=== PATIENT | female | born 1960 | race Caucasian/White ===

== ENCOUNTER 2025-02-27 14:48 | Inpatient (IN) | payer MEDICAID, OTHER ==
[~2025-02-27] VITALS: Ht 154.9 cm; Wt 66.0 kg
[2025-02-27 15:00] VITALS: PULSE 106; RESP 14; O2SAT 96
--- NOTE | 2025-02-27 15:21 | ED.PDOC ---
History of Present Illness HPI Comments 64F BIBA w/ prior MHx of DM(has not been taking her Insulin recently)and w/ the c/c of falls. EMS report on the pt having had multiple falls in the last 2 days w/ the pt injuring her left rib yesterday and has pain w/ palpation. Pt fell again today w/ no new pain and prompted the pt's daughter to call 911 and from the pt having had weakness. When EMS arrived on scene the pt had a BS of "high" and a BP of 200/100. Pt was given a 20 guage to the left AC, w/ 4 zofran and 300mg of fluids. Pt states on having diffuse ABD pain at the moment. Denies any symptoms at this time. Patient denies any CP, SOB, dizziness, numbness, tingling, fever, chills, or recent fall. Chief Complaint: General Weakness Time Seen by MD: 15:15 Primary Care Provider: NONE Reviewed Notes: Nurses Notes, Collection Specialist Notes, Medications, Allergies Allergies: Coded Allergies: NO KNOWN ALLERGIES (Unverified , 04/05/13) Information Source: Patient, Emergency Med Personnel Mode of Arrival: EMS Severity: Moderate Timing: Hours Duration: Since onset, Hours Prehospital treatment: None Past Medical History PAST MEDICAL HISTORY: DM (has not been taking her Insulin recently), Denies Surgical History: Appendectomy, Hysterectomy DAUB COLOR MIXER History: No Pertinent DAUB COLOR MIXER History Family History Family History: Reviewed,noncontributory to illness, Unknown Social History Smoker: Non-Smoker Alcohol: Occasionally Drugs: Denies Drug Use Lives In: Home Constitutional: reports: weakness; denies: chills, diaphoresis, fatigue, fever, malaise, sweats, others EENTM: denies: blurred vision, double vision, ear bleeding, ear discharge, ear drainage, ear pain, ear ringing, eye pain, eye redness, hearing loss, mouth pain, mouth swelling, nasal discharge, nose bleeding, nose congestion, nose pain, photophobia, tearing, throat pain, throat swelling, voice changes, others Respiratory: denies: cough, hemoptysis, orthopnea, SOB at rest, shortness of breath, SOB with excertion, stridor, wheezing, others Cardiovascular: reports: chest pain (left chest wall pain s/p fall); denies: dizzy spells, diaphoresis, Dyspnea on exertion, edema, irregular heart beat, left arm pain, lightheadedness, palpitations, PND, syncope, others Gastrointestinal: reports: abdominal pain; denies: abdomen distended, blood streaked bowels, constipated, diarrhea, dysphagia, difficulty swallowing, hematemesis, melena, nausea, poor appetite, poor fluid intake, rectal bleeding, rectal pain, vomiting, others Genitourinary: denies: abnormal vagina bleeding, burning, dyspareunia, dysuria, flank pain, frequency, hematuria, incontinence, pain, , vagina discharge, urgency, others Neurological: denies: dizziness, fainting, headache, left sided numbness, left sided weakness, numbness, paresthesia, pre-existing deficit, right sided numbness, right sided weakness, seizure, speech problems, tingling, tremors, weakness, others Musculoskeletal: denies: back pain, gout, joint pain, joint swelling, muscle pa in, muscle stiffness, neck pain, others Integumetry: denies: bruises, change in color, change in hair/nails, dryness, laceration, lesions, lumps, rash, wounds, others Allergic/Immunocompromised: denies: Difficulty Healing, Frequent Infections, Hives, Itching, others Hematologic/Lymphatic: denies: anemia, blood clots, easy bleeding, easy bruising, swollen glands, others Endocrine: denies: excessive hunger, excessive sweating, excessive thirst, excessive urination, flushing, intolerance to cold, intolerance to heat, unexplained weight gain, unexplained weight loss, others Psychiatric: denies: anxiety, bipolar disorder, depression, hopeless, panic disorder, schizophrenia, sleepless, suicidal, others All Other Systems: Reviewed and Negative Physical Exam Exam Comments diffuse ABD Tenderness General Appearance: No Apparent Distress, Normal HEENT: Normal ENT Inspection, Pharynx Normal, TMs Normal Neck: Full Range of Motion, Non-Tender, Normal, Normal Inspection Respiratory: Chest Non-Tender, Lungs Clear, No Accessory Muscle Use, No Respiratory Distress, Normal Breath Sounds Cardiovascular: No Edema, No JVD, No Murmur, No Gallop, Normal Peripheral Pulses, Regular Rate/Rhythm Breast Exam: Deferred Gastrointestinal: Diffuse, No Organomegaly, No Pulsatile Mass, Normal Bowel Sounds, Soft, Tenderness Genitalia: Deferred Pelvic: Deferred Rectal: Deferred Extremities: No calf tenderness, Normal capillary refill, Normal inspection, Normal range of motion, Non-tender, No pedal edema Musculoskeletal : Apperance: Normal Neurologic: Alert, health underwriter II-XII nml as Tested, No Motor Deficits, Normal Affect, Normal Mood, No Sensory Deficits Cerebellar Function: Normal Reflexes: Normal Skin: Dry, Normal Color, Warm Lymphatic: No Adenopathy Was a procedure done? Was a procedure done?: No Differential Dx Considerations may include: Sepsis, DKA, UTI, CVA X-Ray, Labs, Meds, VS Vital Signs Date Time Temp Pulse Resp B/P (MAP) Pulse Ox O2 Delivery O2 Flow Rate FiO2 02/27/25 18:10 188/99 02/27/25 17:00 106 17 192/96 (128) 97 02/27/25 15:00 106 14 96 Room Air* 0 21 02/27/25 15:00 98.3 106 14 178/98 (124) 96 98.3 02/27/25 14:51 98.3 104 28 205/119 96 98.3 Lab Test 02/27/25 16:50 02/27/25 15:16 Range/Units Urine Color Colorless Yellow Urine Clarity Clear Clear Urine pH 5.0 5.0-9.0 Urine Specific [place] 1.027 1.001-1.035 Urine Protein Trace H Negative Urine Ketones 2+ H Negative Urine Blood Trace H Negative /uL Urine Nitrite Negative Negative Urine Bilirubin Negative Negative Urine Urobilinogen Normal Negative mg/dL Urine Leukocyte Esterase 2+ Negative /uL Urine RBC 1 0 - 4 /hpf Urine Microscopic WBC 8 H 0-5 /HPF Urine Squamous Epithelial Cells Few <5 /hpf Urine Bacteria Few H None Seen /hpf Urine Glucose 4+ H Normal mg/dL White Blood Count 10.4 4.4-10.8 10^3/uL Red Blood Count 5.05 4.0-5.20 10^6/uL Hemoglobin 14.8 12.2-16.2 g/dL Hematocrit 44.3 36.0-46.0 % Mean Corpuscular Volume 87.8 80.0-100.0 fL Mean Corpuscular Hemoglobin 29.2 28.0-32.0 pg Mean Corpuscular Hemoglobin Concent 33.3 32.0-36.0 g/dL Red Cell Distribution Width 13.5 11.8-14.3 % Platelet Count 286 140-450 10^3/uL Mean Platelet Volume 8.8 6.9-10.8 fL Neutrophils (%) (Auto) 85.4 H 37.0-80.0 % Lymphocytes (%) (Auto) 6.0 L 10.0-50.0 % Monocytes (%) (Auto) 8.2 0.0-12.0 % Eosinophils (%) (Auto) 0.0 0.0-7.0 % Basophils (%) (Auto) 0.4 0.0-2.0 % Neutrophils # (Auto) 8.9 H 1.6-8.6 10 ^3/uL Lymphocytes # (Auto) 0.6 0.4-5.4 10 ^3/uL Monocytes # (Auto) 0.9 0-1.3 10 ^3/uL Eosinophils # (Auto) 0 0-0.8 10 ^3/uL Basophils # (Auto) 0 0-0.2 10 ^3/uL Nucleated Red Blood Cells 0.1 % Sodium Level 136 136-145 mmol/L Potassium Level 3.7 3.5-5.1 mmol/L Chloride Level 98 98-107 mmol/L Carbon Dioxide Level 23 20-31 mmol/L Anion Gap 15 5-15 Blood Urea Nitrogen 24 H 9-23 mg/dL Creatinine 1.01 0.550-1.02 mg/dL Glomerular Filtration Rate Calc 61 >90 mL/min BUN/Creatinine Ratio 23.8 H 10.0-20.0 Serum Glucose 554 *H 74-106 mg/dL Calcium Level 9.7 8.7-10.4 mg/dL Total Bilirubin 1.2 H 0.2-1.0 mg/dL Aspartate Amino Transferase (AST) 17 13-40 U/L Alanine Aminotransferase (ALT) 19 7-40 U/L Alkaline Phosphatase 109 46-116 U/L Total Protein 8.4 H 5.7-8.2 g/dL Albumin 4.5 3.2-4.8 g/dL Lipase 61 H 12-53 U/L Current Medications Medications (Trade) Dose Ordered Sig/Yareli Route Start Time Stop Time Status Last Admin Sodium Chloride 1,000 ml @ 1,000 mls/hr Q1H ONCE IV 02/27/25 15:15 02/27/25 16:14 DC 02/27/25 15:40 Ketorolac Tromethamine (Toradol Injection) 30 mg ONCE ONCE IV 02/27/25 16:15 02/27/25 16:21 DC 02/27/25 16:40 Hydralazine HCl (Apresoline Injection) 10 mg ONCE ONCE IV 02/27/25 17:45 02/27/25 17:46 DC 02/27/25 18:10 X-Ray, Labs, Meds, VS Comment Patient will be admitted for urinary tract infection and metabolic encephalopathy Recommend education due to poor compliance with diabetes and insulin use Patient hemodynamically stable Pending lactic acid Time of 1ST Reevaluation: 15:45 Reevaluation 1ST: Unchanged Patient Education/Counseling: Diagnosis, Treatment, Prognosis, Need For Follow Up Family Education/Counseling: No Family Present SEPSIS Sepsis Screen Date sepsis recognized/suspect: Feb 27, 2025 Time Sepsis recognized/suspect: 1450 Recent Procedure: No On Antibiotic Therapy: No Respiratory Rate >20: Yes Heart Rate >90: Yes Temp<36 C (96.8 F) or >38.3 C: No SBP <90 or MAP <65 mmHG: No New Acute Mental Status Change: No Is the patient on CPAP, BIPAP,: No Physician Orders Ct Ab Pel Wo Con-No Oral Or Iv (02/27/25 15:07) Head Without Contrast (02/27/25 15:14) Ceftriaxone 1gm/50ml (Rocephin) (02/27/25 18:30) Lipase (02/27/25 18:26) Vital Signs Date Time Temp Pulse Resp B/P (MAP) Pulse Ox O2 Delivery O2 Flow Rate FiO2 02/27/25 18:10 188/99 02/27/25 17:00 106 17 192/96 (128) 97 02/27/25 15:00 106 14 96 Room Air* 0 21 02/27/25 15:00 98.3 106 14 178/98 (124) 96 98.3 02/27/25 14:51 98.3 104 28 205/119 96 98.3 Laboratory Tests Test 02/27/25 15:16 White Blood Count 10.4 10^3/uL (4.4-10.8) Medications Medications Dose Ordered Sig/Yareli Route Start Time Stop Time Status Last Admin Dose Admin Hydralazine HCl 10 mg ONCE ONCE IV 02/27/25 17:45 02/27/25 17:46 DC 02/27/25 18:10 Ketorolac Tromethamine 30 mg ONCE ONCE IV 02/27/25 16:15 02/27/25 16:21 DC 02/27/25 16:40 Sodium Chloride 1,000 ml @ 1,000 mls/hr Q1H ONCE IV 02/27/25 15:15 02/27/25 16:14 DC 02/27/25 15:40 Departure 1 Departure Time of Disposition: 18:28 Impression: Primary Impression: UTI (urinary tract infection) Qualified Codes: N30.01 - Acute cystitis with hematuria Additional Impression: Hyperglycemia Disposition: ADMITTED INPATIENT Condition: Stable Discharged With: Self Critical Care Note Critical Care Time?: No Stability Stability form required: No I personally scribed for ILDEFONSO CONTRERAS ([email or web address]) on 02/27/25 at 15:21. Electronically submitted by Stefano Montoya ([email or web address]). ILDEFONSO CONTRERAS Feb 27, 2025 15:21
[2025-02-27 15:30] LABS: Hematocrit 44.3 % (36.0-46.0); Hemoglobin 14.8 g/dL (12.2-16.2); Mean Corpuscular Hemoglobin 29.2 pg (28.0-32.0); Mean Corpuscular Volume 87.8 fL (80.0-100.0); Nucleated Red Blood Cells % 0.1 %
[2025-02-27] MEDS: SODIUM CHLORIDE 0.9% 1,000 ML IV ONE (15:40)
[2025-02-27] MEDS: InsuLIN REG 1unit/0.01ml Soln (100units/ml) IV ONE (15:42)
[2025-02-27 15:44] LABS: Alanine Aminotransferase 19 U/L (7-40); Albumin 4.5 g/dL (3.2-4.8); Alkaline Phosphatase 109 U/L (46-116); Anion Gap 15 (5-15); BUN/Creatinine Ratio 23.8 (10.0-20.0); Calcium 9.7 mg/dL (8.7-10.4); Carbon Dioxide 23 mmol/L (20-31); Potassium 3.7 mmol/L (3.5-5.1)
[2025-02-27 15:47] LABS: Bilirubin, Total 1.2 mg/dL (0.2-1.0); Blood Urea Nitrogen 24 mg/dL (9-23); Chloride 98 mmol/L (98-107); Lipase 61 U/L (12-53); Sodium 136 mmol/L (136-145); Total Protein 8.4 g/dL (5.7-8.2)
[2025-02-27 15:48] LABS: Glucose 554 mg/dL (74-106)
[2025-02-27] MEDS: KETOROLAC TROMETH 30 MG/ML 1ML VIAL IV ONE (16:40)
--- NOTE | 2025-02-27 17:04 | DVH ---
EXAM: CT HEAD WITHOUT CONTRAST INDICATION: fall COMPARISON: None TECHNIQUE: CT of the head without intravenous contrast. Radiation Dose Information: CT Dose: CTDI volume is 53.67 mGy. Dose-length product is 1057.69 mGy*cm The dose indicators for CT are the volume Computed Tomography (CT) Dose Index (CTDIvol) and the Dose Length Product (DLP), and are measured in units of mGy and mGy-cm, respectively. These indicators are not patient dose, but values generated from the CT scanner acquisition factors. The report includes radiation exposure data for exposures received during this examination. FINDINGS: Scattered hypoattenuation in the periventricular and subcortical white matter, suggestive of chronic microvascular disease. The ventricles and sulci are mildly enlarged, compatible with generalized parenchymal volume loss. There is no mass- effect, hemorrhage, midline shift, or abnormal extra-axial fluid collection visible. No calvarial fracture. Essentially clear visualized paranasal sinuses. Mastoid air cells are clear. IMPRESSION: No acute intracranial hemorrhage or mass effect.
--- NOTE | 2025-02-27 17:13 | DVH ---
INDICATION: abd pain TECHNIQUE: CT axial images of the abdomen and pelvis are obtained without contrast. Coronal and sagittal reformats were obtained. Radiation Dose Information: CTDI volume is 5.91 mGy. Dose-length product is 319.52 mGy*cm COMPARISON: None FINDINGS: There is limited interpretation of the abdomen and pelvis without administration of intravenous contrast. Lung bases demonstrate 3 mm right middle lobe pulmonary nodule. 2 mm right middle lobe pulmonary nodule. 6 mm left upper lobe lingular segment nodule. 7 mm left upper lobe lingular segment nodule. Left lower lobe solid nodule measuring 6 mm. Coronary artery calcification disease. Adrenal glands, spleen, pancreas unremarkable in shape. Liver unremarkable shape. Hydropic/Distended gallbladder. Gallstone near the gallbladder neck. Kidneys demonstrate no hydronephrosis, nephrolithiasis. Stomach is partially distended. Small bowel loops are normal in caliber. Colonic diverticular disease. Moderate volume stool in the colon. No secondary signs for appendicitis. Abdominal aortic atherosclerotic disease. Bladder markedly distended. No free pelvic fluid. No inguinal lymphadenopathy. [id number] bilateral sacroiliac degenerative joint disease. [id number] thoracolumbar degenerative disc disease. Chronic T11 compression deformity with 40% loss height. IMPRESSION: Limited evaluation without contrast. Hydropic/ distended gallbladder with gallstone near the gallbladder neck. Recommend abdominal ultrasound , HIDA scan to further evaluate for gallbladder obstruction, cholecystitis. Bilateral pulmonary nodules up to 7 mm. Recommend follow-up per Fleischner society criteria. Correlate with malignancy risk factors. Atherosclerotic, coronary artery calcification disease. Distended bladder. Other findings as described.
[2025-02-27 17:28] LABS: Urine Protein, UAD TRACE (Negative)
[2025-02-27] MEDS: hydrALAZINE HCL 20 MG/ML VL IV ONE (18:10)
[2025-02-27] MEDS: ONDANSETRON HCL 4 MG/2 ML VIAL IV ONE (18:46)
[2025-02-27] MEDS: MORPHINE SULFATE 4 MG/ML SYR/VIAL IV ONE (18:47)
[2025-02-27] MEDS ORDERED: DEXTROSE (50%) 50ML SYRG IV PRN (19:30)
[2025-02-27] MEDS: ACCU-CHEK COMFORT CURVE STRIP VI SCH (20:46)
[2025-02-27] MEDS: InsuLIN REG 1unit/0.01ml Soln (100units/ml) SC SCH (20:52)
[2025-02-27 21:20] VITALS: PULSE 104; RESP 16; O2SAT 97
[2025-02-28] VITALS (9 sets, daily range): BP systolic 91–140; BP diastolic 46–74; PULSE 72–102; RESP 15–18; TEMP 97.4–98.1; O2SAT 94–100
--- NOTE | 2025-02-28 04:00 | DVHHP2 ---
History of Present Illness Reason for Visit: Generalized weakness History of Present Illness 64-year-old female presents for evaluation of generalized weakness. Patient reports a two day history of generalized weakness with associated high blood sugars. Patient also reports having a fall due to dizziness. On arrival patient's blood pressure was in the 180s. The patient denies history of hypertension. Patient reports running out of her insulin and does not have a primary care provider. No chest pain or shortness for breath. Past Medical History Diabetes mellitus Past Surgical History Hysterectomy, appendectomy Family History Noncontributory Smoke: No ALCOHOL: none Drugs: None Lives: with Family Review of Systems Review of Systems Review of systems are currently negative otherwise addressed in HPI. Allergies: Coded Allergies: NO KNOWN ALLERGIES (Unverified , 04/05/13) Medications Current Medications Medications Dose Ordered Sig/Yareli Route Start Time Stop Time Status Last Admin Dose Admin Hydralazine HCl 10 mg Q6HP PRN IV 02/27/25 19:30 Ceftriaxone Sodium 50 ml @ 100 mls/hr DAILY@09 IV 02/28/25 09:00 Diagnostic Test (Pha) 1 strip IQ4HR 02/27/25 20:00 02/28/25 00:39 1 STRIP Insulin Human Regular IQ4HR SC 02/27/25 20:00 02/28/25 00:38 12 UNITS Dextrose 50 ml UD PRN IV 02/27/25 19:30 Ondansetron HCl 4 mg Q4HP PRN IV 02/27/25 19:30 Acetaminophen 650 mg Q6HP PRN PO 02/27/25 19:30 Exam Vital Signs Vital Signs Date Time Temp Pulse Resp B/P (MAP) Pulse Ox O2 Delivery O2 Flow Rate FiO2 02/28/25 00:51 98.1 102 16 128/72 (90) 98 98.1 02/28/25 00:36 Nasal Cannula* 2 28 Exam Gen: 64-year-old female in mild distress Skin: Warm, dry, normal color and texture, no rash. HEENT: Normocephalic atraumatic, mucous membranes moist and pink. Neck: Cervical and supraclavicular nodes normal without enlargement, trachea is midline, thyroid gland is normal without masses. Pulmonary: Clear to auscultation and percussion bilaterally. Cardiac: Regular rate and rhythm. No murmur Abdomen: Soft, nontender, nondistended, bowel sounds present all 4 quadrants, no guarding, no rigidity, no organomegaly. Extremities: No cyanosis, clubbing, no edema Neuro: Cranial nerves II through XII grossly intact, normal affect and speech, no focal motor deficits. Labs/Xrays ORDERING PHYSICIAN: ILDEFONSO CONTRERAS PROCEDURE(s): ABPL - CT AB PEL WO CON-NO ORAL OR IV REASON: abd pain ORDER NUMBER(s): [id number], ACCESSION NUMBER(s): [id number] INDICATION: abd pain TECHNIQUE: CT axial images of the abdomen and pelvis are obtained without contrast. Coronal and sagittal reformats were obtained. Radiation Dose Information: CTDI volume is 5.91 mGy. Dose-length product is 319.52 mGy*cm COMPARISON: None FINDINGS: There is limited interpretation of the abdomen and pelvis without administration of intravenous contrast. Lung bases demonstrate 3 mm right middle lobe pulmonary nodule. 2 mm right middle lobe pulmonary nodule. 6 mm left upper lobe lingular segment nodule. 7 mm left upper lobe lingular segment nodule. Left lower lobe solid nodule measuring 6 mm. Coronary artery calcification disease. Adrenal glands, spleen, pancreas unremarkable in shape. Liver unremarkable shape. Hydropic/Distended gallbladder. Gallstone near the gallbladder neck. Kidneys demonstrate no hydronephrosis, nephrolithiasis. Stomach is partially distended. Small bowel loops are normal in caliber. Colonic diverticular disease. Moderate volume stool in the colon. No secondary signs for appendicitis. Abdominal aortic atherosclerotic disease. Bladder markedly distended. No free pelvic fluid. No inguinal lymphadenopathy. [id number] bilateral sacroiliac degenerative joint disease. [id number]-at-[id number] thoracolumbar degenerative disc disease. Chronic T11 compression deformity with 40% loss height. IMPRESSION: Limited evaluation without contrast. Hydropic/ distended gallbladder with gallstone near the gallbladder neck. Recommend abdominal ultrasound , HIDA scan to further evaluate for gallbladder obstruction, cholecystitis. Bilateral pulmonary nodules up to 7 mm. Recommend follow-up per Fleischner society criteria. Correlate with malignancy risk factors. Atherosclerotic, coronary artery calcification disease. Distended bladder. Other findings as described. / SEX: 64 / F ADM STATUS: REG ER SERVICE [id number] ORDERING PHYSICIAN: IVY*,CHRISTOPHER E ASSISTANT MECHANIC PROCEDURE(s): HWOCT - HEAD WITHOUT CONTRAST REASON: fall ORDER NUMBER(s): [id number], ACCESSION NUMBER(s): [id number] EXAM: CT HEAD WITHOUT CONTRAST INDICATION: fall COMPARISON: None TECHNIQUE: CT of the head without intravenous contrast. Radiation Dose Information: CT Dose: CTDI volume is 53.67 mGy. Dose-length product is 1057.69 mGy*cm The dose indicators for CT are the volume Computed Tomography (CT) Dose Index (CTDIvol) and the Dose Length Product (DLP), and are measured in units of mGy and mGy-cm, respectively. These indicators are not patient dose, but values generated from the CT scanner acquisition factors. The report includes radiation exposure data for exposures received during this examination. FINDINGS: Scattered hypoattenuation in the periventricular and subcortical white matter, suggestive of chronic microvascular disease. The ventricles and sulci are mildly enlarged, compatible with generalized parenchymal volume loss. There is no mass- effect, hemorrhage, midline shift, or abnormal extra-axial fluid collection visible. No calvarial fracture. Essentially clear visualized paranasal sinuses. Mastoid air cells are clear. IMPRESSION: No acute intracranial hemorrhage or mass effect. Labs Test 02/28/25 00:21 02/27/25 19:21 02/27/25 16:50 02/27/25 15:16 Range/Units POC Glucose 301 H 70-106 mg/dl Lactic Acid Level 1.2 0.4-2.0 mmol/L Urine Color Colorless Yellow Urine Clarity Clear Clear Urine pH 5.0 5.0-9.0 Urine Specific [place] 1.027 1.001-1.035 Urine Protein Trace H Negative Urine Ketones 2+ H Negative Urine Blood Trace H Negative /uL Urine Nitrite Negative Negative Urine Bilirubin Negative Negative Urine Urobilinogen Normal Negative mg/dL Urine Leukocyte Esterase 2+ Negative /uL Urine RBC 1 0 - 4 /hpf Urine Microscopic WBC 8 H 0-5 /HPF Urine Squamous Epithelial Cells Few <5 /hpf Urine Bacteria Few H None Seen /hpf Urine Glucose 4+ H Normal mg/dL White Blood Count 10.4 4.4-10.8 10^3/uL Red Blood Count 5.05 4.0-5.20 10^6/uL Hemoglobin 14.8 12.2-16.2 g/dL Hematocrit 44.3 36.0-46.0 % Mean Corpuscular Volume 87.8 80.0-100.0 fL Mean Corpuscular Hemoglobin 29.2 28.0-32.0 pg Mean Corpuscular Hemoglobin Concent 33.3 32.0-36.0 g/dL Red Cell Distribution Width 13.5 11.8-14.3 % Platelet Count 286 140-450 10^3/uL Mean Platelet Volume 8.8 6.9-10.8 fL Neutrophils (%) (Auto) 85.4 H 37.0-80.0 % Lymphocytes (%) (Auto) 6.0 L 10.0-50.0 % Monocytes (%) (Auto) 8.2 0.0-12.0 % Eosinophils (%) (Auto) 0.0 0.0-7.0 % Basophils (%) (Auto) 0.4 0.0-2.0 % Neutrophils # (Auto) 8.9 H 1.6-8.6 10 ^3/uL Lymphocytes # (Auto) 0.6 0.4-5.4 10 ^3/uL Monocytes # (Auto) 0.9 0-1.3 10 ^3/uL Eosinophils # (Auto) 0 0-0.8 10 ^3/uL Basophils # (Auto) 0 0-0.2 10 ^3/uL Nucleated Red Blood Cells 0.1 % Sodium Level 136 136-145 mmol/L Potassium Level 3.7 3.5-5.1 mmol/L Chloride Level 98 98-107 mmol/L Carbon Dioxide Level 23 20-31 mmol/L Anion Gap 15 5-15 Blood Urea Nitrogen 24 H 9-23 mg/dL Creatinine 1.01 0.550-1.02 mg/dL Glomerular Filtration Rate Calc 61 >90 mL/min BUN/Creatinine Ratio 23.8 H 10.0-20.0 Serum Glucose 554 *H 74-106 mg/dL Hemoglobin A1c 12.7 H <5.7 % A1C Calcium Level 9.7 8.7-10.4 mg/dL Total Bilirubin 1.2 H 0.2-1.0 mg/dL Aspartate Amino Transferase (AST) 17 13-40 U/L Alanine Aminotransferase (ALT) 19 7-40 U/L Alkaline Phosphatase 109 46-116 U/L Total Protein 8.4 H 5.7-8.2 g/dL Albumin 4.5 3.2-4.8 g/dL Lipase 61 H 12-53 U/L SEPSIS Sepsis Screen Date sepsis recognized/suspect: Feb 27, 2025 Time Sepsis recognized/suspect: 2119 Recent Procedure: No On Antibiotic Therapy: No Respiratory Rate >20: No Heart Rate >90: Yes Temp<36 C (96.8 F) or >38.3 C: No SBP <90 or MAP <65 mmHG: No New Acute Mental Status Change: No Is the patient on CPAP, BIPAP,: No Vital Signs Date Time Temp Pulse Resp B/P (MAP) Pulse Ox O2 Delivery O2 Flow Rate FiO2 02/28/25 00:51 98.1 102 16 128/72 (90) 98 98.1 02/28/25 00:36 102 18 98 Nasal Cannula* 2 28 02/27/25 23:18 99 17 130/61 (84) 97 02/27/25 21:20 104 16 97 Nasal Cannula* 2 28 02/27/25 21:20 98.7 104 16 127/61 (83) 98 98.7 Laboratory Tests Test 02/27/25 19:21 Lactic Acid Level 1.2 mmol/L (0.4-2.0) Medications Medications Dose Ordered Sig/Yareli Route Start Time Stop Time Status Last Admin Dose Admin Ceftriaxone Sodium 50 ml @ 100 mls/hr ONCE ONCE IV 02/27/25 18:30 02/27/25 18:59 DC 02/27/25 18:45 100 MLS/HR Diagnostic Test (Pha) 1 strip IQ4HR 02/27/25 20:00 02/28/25 00:39 1 STRIP Hydralazine HCl 10 mg ONCE ONCE IV 02/27/25 17:45 02/27/25 17:46 DC 02/27/25 18:10 10 MG Insulin Human Regular IQ4HR SC 02/27/25 20:00 02/28/25 00:38 12 UNITS Ketorolac Tromethamine 30 mg ONCE ONCE IV 02/27/25 16:15 02/27/25 16:21 DC 02/27/25 16:40 30 MG Morphine Sulfate 4 mg ONCE ONCE IV 02/27/25 18:45 02/27/25 18:46 DC 02/27/25 18:47 4 MG Ondansetron HCl 4 mg ONCE ONCE IV 02/27/25 18:45 02/27/25 18:46 DC 02/27/25 18:46 4 MG Assessment/Plan Assessment/Plan Hypertensive urgency Urinary tract infection Uncontrolled diabetes mellitus Plan Admit the patient to Med surge to the hospitalist As needed antihypertensives Resume home medications Rocephin Continue treatment per orders. Plan discussed with: Patient My Orders Orders - MELBA LYNCH Procedure Category Date Status Time Hydralazine Injection PHA 02/27/25 In Process (Apresoline Inject 19:30 Basic Metabolic Panel LAB 02/28/25 Logged 04:00 Urine Bacterial SHERI 02/27/25 In Process Culture 19:25 Ceftriaxone 1gm/50ml PHA 02/28/25 In Process (Rocephin) 09:00 Insulin R (Human) PHA 02/27/25 In Process (Insulin R) 20:00 Dextrose 50% Syringe PHA 02/27/25 In Process 19:30 Admit ADMIT 02/27/25 Transmitted 19:25 Ondansetron Hcl PHA 02/27/25 In Process (Zofran) 19:30 Complete Blood Count LAB 02/28/25 Logged 04:00 Condition: Stable SIRIA 02/27/25 In Process 19:25 Acetaminophen Tablet PHA 02/27/25 In Process (Tylenol Tablet) 19:30 Bedrest With Bathroom SIRIA 02/27/25 In Process Privileg 19:25 Consistent DIET 02/28/25 Transmitted Carb(Ccho)Diabetes Breakfast Glucose Blood PHA 02/27/25 In Process (Accu-Chek Comfort 20:00 Date of Service: Feb 27, 2025 Billing Provider: MELBA LYNCH Common Visit Codes: [id number] INP/OBS CARE (HIGH) MELBA LYNCH Feb 28, 2025 04:00
[2025-02-28 08:32] LABS: Hematocrit 42.0 % (36.0-46.0); Hemoglobin 14.1 g/dL (12.2-16.2); Mean Corpuscular Hemoglobin 29.1 pg (28.0-32.0); Mean Corpuscular Volume 86.5 fL (80.0-100.0); Nucleated Red Blood Cells % 0.3 %
[2025-02-28 08:34] LABS: Chloride 106 mmol/L (98-107); Sodium 143 mmol/L (136-145)
[2025-02-28 08:35] LABS: Anion Gap 11 (5-15); Carbon Dioxide 26 mmol/L (20-31)
[2025-02-28] MEDS: ACETAMINOPHEN 325 MG TAB PO PRN (08:35)
[2025-02-28 08:36] LABS: Calcium 9.1 mg/dL (8.7-10.4)
[2025-02-28] MEDS: ONDANSETRON HCL 4 MG/2 ML VIAL IV PRN (08:36)
[2025-02-28 08:41] LABS: BUN/Creatinine Ratio 28.8 (10.0-20.0); Glucose 89 mg/dL (74-106)
[2025-02-28 08:44] LABS: Blood Urea Nitrogen 23 mg/dL (9-23); Potassium 3.5 mmol/L (3.5-5.1)
[2025-02-28] MEDS: METOPROLOL TARTRATE 25 MG TAB PO SCH (09:57)
--- NOTE | 2025-02-28 10:09 | DVH ---
EXAM DESCRIPTION: US LIVER CLINICAL HISTORY: Suspected cholelithiasis/dilated CBD COMPARISON: CT abdomen pelvis 02/27/25. TECHNIQUE: Using real-time ultrasonography multiple images of the abdomen were obtained. FINDINGS: The liver measures 18.5 cm. No focal liver masses. The liver is diffiusely increased in echongenicity. The partially imaged pancreas is unremarkable. Dilated gallbladder with a gallstone at the gallbladder neck. Borderline gallbladder wall thickening. No pericholecystic fluid. Negative sonographic Balbuena sign. The common bile duct measures 6 mm in diameter. There is no free intraperitoneal fluid. The right kidney measures 10.4cm. No right renal calculi or hydronephrosis. IMPRESSION: 1. Dilated gallbladder with a gallstone at the gallbladder neck and borderline gallbladder wall thickening. However there is no pericholecystic fluid and the sonographic balbuena sign is negative. These findings are equivocal for acute cholecystitis. Recommend further evaluation with HIDA scan. 2. No biliary ductal dilation.
[2025-02-28] MEDS: HYDROmorphone HCL 2 MG/ML VL/or syr IV ONE (11:11)
[2025-02-28] MEDS ORDERED: D5W/SOD CHLO 0.9% 1,000 ML IV SCH (11:30)
[2025-02-28 12:07] LABS: Free T3 2.23 pg/mL (2.3-4.2); Free T4 (Free Thyroxine) 1.25 ng/dL (0.89-1.76)
[2025-02-28] MEDS: SODIUM CHLORIDE 0.9% 1,000 ML IV SCH (12:28)
[2025-02-28] MEDS: HYDROcodone-ACET 5/325MG TAB PO PRN (13:50)
--- NOTE | 2025-02-28 13:57 | DVH ---
CLINICAL INDICATION: FALL/RIB PAIN TECHNIQUE: 3 radiographic views of the compression of T11 is noted age indeterminate. were obtained. COMPARISON: None FINDINGS/IMPRESSION: There are no rib fractures noted no pleural effusions no pleural thickening. There is no pneumothorax. Compression of T11 is seen age indeterminate correlate with clinical history of trauma and clinical signs and symptoms of discomfort and pain.
--- NOTE | 2025-02-28 13:59 | DVH ---
CLINICAL INDICATION: TAIL BONE PAIN/FALL TECHNIQUE: 3 radiographic views of the sacrum coccyx were obtained. COMPARISON: None FINDINGS/IMPRESSION: Bony structures appear normal on the tact. There are no prior studies for comparison.
--- NOTE | 2025-02-28 16:22 | DVHPNRES ---
Progress Note Date Seen: Feb 28, 2025 Resident Creating Document: AMANDA MORGAN RESIDENT Medical Necessity Reason Pt with a Central, PICC or Fol: No Subjective Review of Systems Patient is 64 years old female with a history of type 2 diabetes mellitus on insulin noncompliant came with a complaint of generalized weakness and also high blood sugar level. As per patient she has been having dizziness and weakness for a while and she had a fall at home couple of days before, hit her head and lower back and left lower chest. Patient also endorsed had nonbloody vomiting and nonbloody diarrhea 2 days. Initial lab workup revealed hyperglycemia with a blood sugar 544, hemoglobin A1c 12.7, serum osmolality 304, serum bilirubin 1.2, trop I with a normal limit, lipase 61, urinalysis revealed leukocyte esterase 2+, WBC 8, bacteria few. Glucose 4+. Ketone 2+. Blood trace. CT abdomen and pelvis revealed- Hydropic/ distended gallbladder with gallstone near the gallbladder neck. Recommend abdominal ultrasound , HIDA scan to further evaluate for gallbladder obstruction, cholecystitis. Bilateral pulmonary nodules up to 7 mm. Recommend follow-up per Fleischner society criteria. Correlate with malignancy risk factors.Atherosclerotic, coronary artery calcification disease. Distended bladder. CT head- Scattered hypoattenuation in the periventricular and subcortical white matter, suggestive of chronic microvascular disease. Liver ultrasound- Dilated gallbladder with a gallstone at the gallbladder neck and borderline gallbladder wall thickening. However there is no pericholecystic fluid and the sonographic minor sign is negative. These findings are equivocal for acute cholecystitis. Recommend further evaluation with HIDA scan. No biliary ductal dilation.X-ray right free Compression of T11 is seen age indeterminat. X-ray coccyx- Bony structures appear normal on the tact. There are no prior studies for comparison. PMH-type 2 diabetes mellitus PSH- hysterectomy, appendectomy Allergy- and kidney Personal History/ Social History- denies smoking/alcoholism/drug abuse, lives with daughter ROS Cardiovascular- deny acute chest pain or shortness of breath or cough or palpitation Respiratory denies cough or short of breath or wheezing Gastrointestinal- denies any rectal bleeding, nausea or vomiting Musculoskeletal-denies acute joint swelling or tenderness or redness Neurological- denies acute dysarthria, dysphagia, change in vision Psychiatry- denies depression or SI or HI Skin- denies acute rash or purpura Patient was seen today at bedside Labs and chart reviewed Patient complained of tailbone pain on also pain in the left lower chest EKG with a normal limit Liver ultrasound- Dilated gallbladder with a gallstone at the gallbladder neck and borderline gallbladder wall thickening. However there is no pericholecystic fluid and the sonographic minor sign is negative. Ordered surgery consult for possible cholecystitis X-ray right free Compression of T11 is seen age indeterminat. X-ray coccyx- Bony structures appear normal on the tact. There are no prior studies for comparison. Ordered x-ray thoracolumbar spine for further evaluation Patient on insulin sliding On IV normal saline Pending blood culture, urine culture Patient with acute retention of urine, bedside bladder scan revealed 1200 of urine, ordered Townsend's catheter insertion Objective vital signs Vital Sign Date Time Temp Pulse Resp B/P (MAP) Pulse Ox O2 Delivery O2 Flow Rate FiO2 02/28/25 12:45 97.7 72 15 140/68 (92) 98 97.7 02/28/25 08:00 Nasal Cannula* 2 28 Total Intake and Output 02/27/25 02/27/25 02/28/25 15:00 23:00 07:00 Intake Total 1050 ml 0 ml Balance 1050 ml 0 ml medications Current Medications Medications Dose Ordered Sig/Yarlei Route Start Time Stop Time Status Last Admin Dose Admin Hydralazine HCl 10 mg Q6HP PRN IV 02/27/25 19:30 Ceftriaxone Sodium 50 ml @ 100 mls/hr DAILY@09 IV 02/28/25 09:00 02/28/25 09:58 100 MLS/HR Diagnostic Test (Pha) 1 strip IQ4HR 02/27/25 20:00 02/28/25 12:18 1 STRIP Insulin Human Regular IQ4HR SC 02/27/25 20:00 02/28/25 12:35 6 UNITS Dextrose 50 ml UD PRN IV 02/27/25 19:30 Ondansetron HCl 4 mg Q4HP PRN IV 02/27/25 19:30 02/28/25 08:36 4 MG Acetaminophen 650 mg Q6HP PRN PO 02/27/25 19:30 02/28/25 08:35 650 MG Metoprolol Tartrate 25 mg BID PO 02/28/25 10:00 02/28/25 09:57 25 MG Acetaminophen/ Hydrocodone Bitart 1 tab Q6HPRN PRN PO 02/28/25 10:15 02/28/25 13:50 1 TAB Sodium Chloride 1,000 ml @ 100 mls/hr Q10H IV 02/28/25 11:30 02/28/25 12:28 100 MLS/HR Metronidazole 100 ml @ 100 mls/hr Q8H IV 02/28/25 20:30 Examination General examination- tired looking HEENT- PEERLA, no acute nasal discharge Cardiovascular- S1-S2 audible, rate and rhythm regular, no murmur Respiratory- CTAB, no wheeze or rhonchi Gastrointestinal-nontender, bowel sound+. Lower abdominal distention Musculoskeletal-no acute joint swelling or tenderness or redness Lower extremity- no leg edema Neurological- cranial nerves intact, no acute dysarthria or dysphagia Psychiatry- denies depression or SI or HI Skin- no acute rash or purpura laboratory and microbiology Laboratory Tests 02/28/25 07:42 Test 02/28/25 07:42 Range/Units Serum Glucose 89 74-106 mg/dL Microbiology Date/Time Source Procedure Growth Status 02/27/25 16:50 Voided Urine Urine Culture - Preliminary Resulted Problem List/Assessment/Plan Problem List/Assessment/Plan # suspected metabolic encephalopathy # suspected sepsis likely due to UTI # acute complicated UTI -continue IV fluid as prescribed -continue IV antibiotic ceftriaxone and metronidazole as prescribed -monitor vitals -pending blood culture, urine culture # type 2 diabetes mellitus with hyperglycemia -continue IV normal fluid as prescribed -continuously insulin sliding scale as prescribed -monitor blood sugar # hypertensive urgency -continue metoprolol 25 mg p.o. b.i.d. -monitor blood pressure # history of fall -CTA negative for acute intracranial hemorrhage or infarction -fall precaution # suspected cholelithiasis - Liver ultrasound- Dilated gallbladder with a gallstone at the gallbladder neck and borderline gallbladder wall thickening. However there is no pericholecystic fluid and the sonographic minor sign is negative. Ordered surgery consult for possible cholecystitis -continue IV fluid as prescribed -continue IV antibiotic as prescribed # back pain -X-ray right free Compression of T11 is seen age indeterminat. Ordered x-ray thoracolumbar spine for further evaluation Continue pain medication as prescribed # acute retention of urine -bedside bladder scan revealed 1200 of urine, -ordered Townsend's catheter insertion Goals of care, Code status full code ; discussed with >15 minutes PUD prophylaxis: Pantoprazole DVT prophylaxis: Lovenox Plan discussed with Dr. Valdes , nursing staff, Total time spent on patient evaluation, chart review, assessment and plan, discussion discussion >35 minutes Plan discussed with: Patient, Other (RN) My Orders My Orders Orders - AMANDA MORGAN Procedure Category Date Status Time Osmolality Urine LAB 02/28/25 Logged 09:19 Drug Screen LAB 02/28/25 Logged 09:20 LIVER US 02/28/25 Resulted 09:24 Consult Care CONS 02/28/25 Transmitted Coordinator Hydrocodone-Acet PHA 02/28/25 In Process 5/325mg Tab ([place] 10:15 Electrocardigram EKG 02/28/25 Logged 10:54 Electrocardigram EKG 02/28/25 Logged 11:54 Electrocardigram EKG 02/28/25 Logged 13:54 Sacrum And Coccyx XY 02/28/25 Resulted 11:01 L Rib X Ray XY 02/28/25 Resulted 11:01 Clostridium Difficile SHERI 02/28/25 Uncollected Toxin 11:17 Ova & Parasite Exam SHERI 02/28/25 Uncollected 11:17 Stool Wbc LAB 02/28/25 Logged 11:17 Sodium Chloride 0.9% PHA 02/28/25 In Process 11:30 Bladder Scan ORDERS 02/28/25 Transmitted 11:22 * Surgical Consult CONS 02/28/25 Transmitted Pt Request For Service PT 02/28/25 Logged 11:33 Insert Townsend Catheter SIRIA 02/28/25 In Process 12:45 Blood Culture SHERI 02/28/25 In Process 12:49 Metronidazole PHA 02/28/25 In Process 500mg/100ml (Flagyl 20:30 Thoraco Lumbar XY 02/28/25 Taken 15:28 Visit Coding STANDARD RES Billing Provider: PINKY ENRIQUEZ MD Date of Service if different f: Feb 28, 2025 Common Visit Codes: [id number] INP/OBS CARE(HIGH) AMANDA MORGAN Feb 28, 2025 16:22
--- NOTE | 2025-02-28 17:02 | DVH ---
CLINICAL INDICATION: fall/bacl pain TECHNIQUE: 2 radiographic views of the lumbar spine were obtained. COMPARISON: None FINDINGS/IMPRESSION: Compression fracture of T11 and L1 age indeterminate. No compression of the lumbar spine. Bony alignment of the lumbar spine is normal.
--- NOTE | 2025-02-28 18:04 | DVHINCON2 ---
Date of service: Feb 28, 2025 History of Present Illness 64-year-old female admitted secondary to generalized weakness with uncontrolled hypertension. Patient also complains of some left-sided rib pain. Patient denies any right upper quadrant epigastric abdominal pain. Denies any fevers, chills, nausea or vomiting. Past Medical History Diabetes Past Surgical History Hysterectomy, appendectomy Family History: Patient reports no known family medical history. Family History Noncontributory Social History No alcohol, tobacco, IV drug use Allergies: Coded Allergies: NO KNOWN ALLERGIES (Unverified , 04/05/13) Current Medications Current Medications Medications (Trade) Dose Ordered Sig/Yareli Route PRN Reason Start Time Stop Time Status Last Admin Hydralazine HCl (Apresoline Injection) 10 mg Q6HP PRN IV SBP>150 02/27/25 19:30 Ceftriaxone Sodium 50 ml @ 100 mls/hr DAILY@09 IV 02/28/25 09:00 02/28/25 09:58 Diagnostic Test (Pha) (Accu-Chek Comfort Curve T) 1 strip IQ4HR 02/27/25 20:00 02/28/25 16:15 Insulin Human Regular (InsuLIN R) IQ4HR SC 02/27/25 20:00 02/28/25 16:14 Dextrose 50 ml UD PRN IV Blood Sugar LESS THAN 60 02/27/25 19:30 Ondansetron HCl (Zofran) 4 mg Q4HP PRN IV NAUSEA / VOMITING 02/27/25 19:30 02/28/25 08:36 Acetaminophen (Tylenol Tablet) 650 mg Q6HP PRN PO PAIN SCALE 1-3 OR TEMP>100.4 02/27/25 19:30 02/28/25 08:35 Metoprolol Tartrate (Lopressor Tablet) 25 mg BID PO 02/28/25 10:00 02/28/25 09:57 Acetaminophen/ Hydrocodone Bitart ([place] 5/325MG Tab) 1 tab Q6HPRN PRN PO MODERATE PAIN (4-6 PAIN SCALE) 02/28/25 10:15 02/28/25 13:50 Sodium Chloride 1,000 ml @ 100 mls/hr Q10H IV 02/28/25 11:30 02/28/25 12:28 Dextrose/Sodium Chloride 1,000 ml @ 100 mls/hr Q10H IV 02/28/25 11:30 02/28/25 12:50 DC Metronidazole 100 ml @ 100 mls/hr Q8HR IV 02/28/25 11:30 02/28/25 14:13 DC 02/28/25 12:28 Metronidazole 100 ml @ 100 mls/hr Q8H IV 02/28/25 14:15 02/28/25 14:14 DC Metronidazole 100 ml @ 100 mls/hr Q8H IV 02/28/25 20:30 Vital Signs Vital Signs Date Time Temp Pulse Resp B/P (MAP) Pulse Ox O2 Delivery O2 Flow Rate FiO2 02/28/25 16:39 98.0 74 18 91/46 (61) 94 98.0 02/28/25 08:00 Nasal Cannula* 2 28 Physical Exam GEN: Age-appropriate female in no acute distress. Alert. HEENT: Normocephalic atraumatic. Moist mucous membranes. Anicteric sclerae. CV: RRR Respiratory: CTAB ABD: Soft. Minimal left flank rib pain but no abdominal pain. Nondistended. Abdominal ultrasound: Dilated gallbladder with gallstone at the neck. No pericholecystic fluid. No sonographic Balbuena's sign. CBD is [address] of the abdomen and pelvis: Also shows gallstone in neck of the gallbladder. Labs/Diagnostic Data Labs Test 02/28/25 14:45 02/28/25 11:37 02/28/25 07:42 02/28/25 06:28 Range/Units Troponin I High Sensitivity 6 </=34 ng/L Serum Osmolality 304 H 278-298 mOsm/kg Free Thyroxine (T4) Calculated 1.25 0.89-1.76 ng/dL Free Triiodothyronine (T3) pg/mL 2.23 L 2.3-4.2 pg/mL Total Triiodothyronine (TT3) 0.65 0.60-1.81 ng/mL White Blood Count 8.5 4.4-10.8 10^3/uL Red Blood Count 4.85 4.0-5.20 10^6/uL Hemoglobin 14.1 12.2-16.2 g/dL Hematocrit 42.0 36.0-46.0 % Mean Corpuscular Volume 86.5 80.0-100.0 fL Mean Corpuscular Hemoglobin 29.1 28.0-32.0 pg Mean Corpuscular Hemoglobin Concent 33.6 32.0-36.0 g/dL Red Cell Distribution Width 13.3 11.8-14.3 % Platelet Count 258 140-450 10^3/uL Mean Platelet Volume 8.8 6.9-10.8 fL Neutrophils (%) (Auto) 73.2 37.0-80.0 % Lymphocytes (%) (Auto) 15.1 10.0-50.0 % Monocytes (%) (Auto) 10.1 0.0-12.0 % Eosinophils (%) (Auto) 1.2 0.0-7.0 % Basophils (%) (Auto) 0.4 0.0-2.0 % Neutrophils # (Auto) 6.2 1.6-8.6 10 ^3/uL Lymphocytes # (Auto) 1.3 0.4-5.4 10 ^3/uL Monocytes # (Auto) 0.9 0-1.3 10 ^3/uL Eosinophils # (Auto) 0.1 0-0.8 10 ^3/uL Basophils # (Auto) 0 0-0.2 10 ^3/uL Nucleated Red Blood Cells 0.3 % Sodium Level 143 # 136-145 mmol/L Potassium Level 3.5 3.5-5.1 mmol/L Chloride Level 106 98-107 mmol/L Carbon Dioxide Level 26 20-31 mmol/L Anion Gap 11 5-15 Blood Urea Nitrogen 23 9-23 mg/dL Creatinine 0.80 0.550-1.02 mg/dL Glomerular Filtration Rate Calc 81 >90 mL/min BUN/Creatinine Ratio 28.8 H 10.0-20.0 Serum Glucose 89 74-106 mg/dL Calcium Level 9.1 8.7-10.4 mg/dL Phosphorus Level 2.1 L 2.4-5.1 mg/dL Magnesium Level 2.3 1.6-2.6 mg/dL Vitamin B12 Level 844 211-911 pg/mL Vitamin D 25-Hydroxy 16.4 L 30.0-100 ng/mL Folic Acid 14.81 >5.38 ng/mL Beta-Hydroxybutyric Acid 0.393 < 0.4 mmol/L Thyroid Stimulating Hormone (TSH) 0.32 L 0.55-4.78 uIU/mL Plasma/Serum Blood Alcohol < 3.0 <10 mg/dL POC Glucose 111 H 70-106 mg/dl Test 02/27/25 19:21 02/27/25 16:50 02/27/25 15:16 Range/Units Lactic Acid Level 1.2 0.4-2.0 mmol/L Urine Color Colorless Yellow Urine Clarity Clear Clear Urine pH 5.0 5.0-9.0 Urine Specific [place] 1.027 1.001-1.035 Urine Protein Trace H Negative Urine Ketones 2+ H Negative Urine Blood Trace H Negative /uL Urine Nitrite Negative Negative Urine Bilirubin Negative Negative Urine Urobilinogen Normal Negative mg/dL Urine Leukocyte Esterase 2+ Negative /uL Urine RBC 1 0 - 4 /hpf Urine Microscopic WBC 8 H 0-5 /HPF Urine Squamous Epithelial Cells Few <5 /hpf Urine Bacteria Few H None Seen /hpf Urine Glucose 4+ H Normal mg/dL Hemoglobin A1c 12.7 H <5.7 % A1C Total Bilirubin 1.2 H 0.2-1.0 mg/dL Aspartate Amino Transferase (AST) 17 13-40 U/L Alanine Aminotransferase (ALT) 19 7-40 U/L Alkaline Phosphatase 109 46-116 U/L Total Protein 8.4 H 5.7-8.2 g/dL Albumin 4.5 3.2-4.8 g/dL Lipase 61 H 12-53 U/L Microbiology Date/Time Source Procedure Growth Status 02/27/25 16:50 Voided Urine Urine Culture - Preliminary Resulted Assessment 1. Cholelithiasis without acute cholecystitis Plan/Recommendation 1. We will get liver function tests. If it is elevated we will proceed with a HIDA scan. However if it is relatively normal, no indication for surgical intervention at this time. Plan discussed with: Patient NELSON RODRIGUEZ MD Feb 28, 2025 18:04
[2025-03-01] VITALS (10 sets, daily range): BP systolic 106–124; BP diastolic 48–66; PULSE 71–97; RESP 16–18; TEMP 96–98.2; O2SAT 96–99
[2025-03-01 06:31] LABS: Alanine Aminotransferase 11 U/L (7-40); Alkaline Phosphatase 78 U/L (46-116); Anion Gap 12 (5-15); BUN/Creatinine Ratio 30.4 (10.0-20.0); Blood Urea Nitrogen 21 mg/dL (9-23); Carbon Dioxide 24 mmol/L (20-31); Chloride 103 mmol/L (98-107); Sodium 139 mmol/L (136-145); Total Protein 6.2 g/dL (5.7-8.2)
[2025-03-01 06:32] LABS: Albumin 3.3 g/dL (3.2-4.8); Bilirubin, Total 0.5 mg/dL (0.2-1.0)
[2025-03-01 06:33] LABS: Calcium 8.3 mg/dL (8.7-10.4); Glucose 176 mg/dL (74-106); Potassium 3.2 mmol/L (3.5-5.1)
[2025-03-01 08:54] LABS: Hematocrit 37.3 % (36.0-46.0); Hemoglobin 12.4 g/dL (12.2-16.2); Mean Corpuscular Hemoglobin 28.7 pg (28.0-32.0); Mean Corpuscular Volume 86.4 fL (80.0-100.0); Nucleated Red Blood Cells % 0.1 %
[2025-03-01] MEDS: POTASSIUM EFFERVESENT TAB 25 MEQ PO ONE (09:02)
[2025-03-01] MEDS: hydrALAZINE HCL 20 MG/ML VL IV PRN (09:03)
[2025-03-01] MEDS ORDERED: HYDROmorphone HCL 2 MG/ML VL/or syr IV PRN (09:45)
[2025-03-01] MEDS ORDERED: HYDROmorphone HCL 2 MG/ML VL/or syr IV ONE (09:45)
[2025-03-01] MEDS: PANTOPRAZOLE 40 MG/10 ML VIAL INJ IV SCH (10:00)
[2025-03-01] MEDS: HYDROmorphone HCL 2 MG/ML VL/or syr IV ONE (11:18)
[2025-03-01] MEDS: SUCRALFATE 1 GM TAB PO SCH (12:20)
[2025-03-01] MEDS: HYDROmorphone HCL 2 MG/ML VL/or syr IV PRN (12:48)
--- NOTE | 2025-03-01 15:12 | DVHPNRES ---
Progress Note Date Seen: Mar 01, 2025 Resident Creating Document: AMANDA MORGAN RESIDENT Medical Necessity Reason Pt with a Central, PICC or Fol: No Subjective Review of Systems Patient is 64 years old female with a history of type 2 diabetes mellitus on insulin noncompliant came with a complaint of generalized weakness and also high blood sugar level. As per patient she has been having dizziness and weakness for a while and she had a fall at home couple of days before, hit her head and lower back and left lower chest. Patient also endorsed had nonbloody vomiting and nonbloody diarrhea 2 days. Initial lab workup revealed hyperglycemia with a blood sugar 544, hemoglobin A1c 12.7, serum osmolality 304, serum bilirubin 1.2, trop I with a normal limit, lipase 61, urinalysis revealed leukocyte esterase 2+, WBC 8, bacteria few. Glucose 4+. Ketone 2+. Blood trace. CT abdomen and pelvis revealed- Hydropic/ distended gallbladder with gallstone near the gallbladder neck. Recommend abdominal ultrasound , HIDA scan to further evaluate for gallbladder obstruction, cholecystitis. Bilateral pulmonary nodules up to 7 mm. Recommend follow-up per Fleischner society criteria. Correlate with malignancy risk factors.Atherosclerotic, coronary artery calcification disease. Distended bladder. CT head- Scattered hypoattenuation in the periventricular and subcortical white matter, suggestive of chronic microvascular disease. Liver ultrasound- Dilated gallbladder with a gallstone at the gallbladder neck and borderline gallbladder wall thickening. However there is no pericholecystic fluid and the sonographic minor sign is negative. These findings are equivocal for acute cholecystitis. Recommend further evaluation with HIDA scan. No biliary ductal dilation.X-ray right free Compression of T11 is seen age indeterminat. X-ray coccyx- Bony structures appear normal on the tact. There are no prior studies for comparison. x-ray thoracolumbar spine -Compression fracture of T11 and L1 age indeterminate PMH-type 2 diabetes mellitus PSH- hysterectomy, appendectomy Allergy- and kidney Personal History/ Social History- denies smoking/alcoholism/drug abuse, lives with daughter ROS Cardiovascular- deny acute chest pain or shortness of breath or cough or palpitation Respiratory denies cough or short of breath or wheezing Gastrointestinal- denies any rectal bleeding, nausea or vomiting Musculoskeletal-denies acute joint swelling or tenderness or redness Neurological- denies acute dysarthria, dysphagia, change in vision Psychiatry- denies depression or SI or HI Skin- denies acute rash or purpura Patient was seen today at bedside Labs and chart reviewed Blood culture no growth so far Urine culture more than 3 colonic growth Patient complained of epigastric pain radiating to the chest, pressure-like EKG no acute changes Ordered acute 2D Patient is seen by surgery, recommended cholelithiasis but no cholecystitis, conservative management, no surgical intervention noted at this moment Patient on pantoprazole, sucralfate x-ray thoracolumbar spine -Compression fracture of T11 and L1 age indeterminate Transferred patient to telemetry Objective vital signs Vital Sign Date Time Temp Pulse Resp B/P (MAP) Pulse Ox O2 Delivery O2 Flow Rate FiO2 03/01/25 13:18 92 18 124/64 03/01/25 13:00 96.5 98 96.5 03/01/25 08:00 Nasal Cannula* 3 32 Total Intake and Output 02/28/25 02/28/25 03/01/25 15:00 23:00 07:00 Intake Total 50 ml 700 ml 300 ml Output Total 1250 ml 400 ml Balance 50 ml -550 ml -100 ml medications Current Medications Medications Dose Ordered Sig/Yareli Route Start Time Stop Time Status Last Admin Dose Admin Ceftriaxone Sodium 50 ml @ 100 mls/hr DAILY@09 IV 02/28/25 09:00 03/01/25 08:50 100 MLS/HR Diagnostic Test (Pha) 1 strip IQ4HR 02/27/25 20:00 03/01/25 12:06 1 STRIP Insulin Human Regular IQ4HR SC 02/27/25 20:00 03/01/25 12:14 6 UNITS Dextrose 50 ml UD PRN IV 02/27/25 19:30 Ondansetron HCl 4 mg Q4HP PRN IV 02/27/25 19:30 03/01/25 12:47 4 MG Acetaminophen 650 mg Q6HP PRN PO 02/27/25 19:30 02/28/25 08:35 650 MG Metoprolol Tartrate 25 mg BID PO 02/28/25 10:00 Hold 02/28/25 09:57 25 MG Acetaminophen/ Hydrocodone Bitart 1 tab Q6HPRN PRN PO 02/28/25 10:15 03/01/25 08:50 1 TAB Sodium Chloride 1,000 ml @ 100 mls/hr Q10H IV 02/28/25 11:30 02/28/25 21:30 100 MLS/HR Metronidazole 100 ml @ 100 mls/hr Q8H IV 02/28/25 20:30 03/01/25 12:15 100 MLS/HR Pantoprazole Sodium 40 mg DAILY IV 03/01/25 09:45 03/01/25 11:15 40 MG Hydromorphone HCl 0.25 mg Q4HPRN PRN IV 03/01/25 11:00 03/01/25 12:48 0.25 MG Atorvastatin Calcium 20 mg HS PO 03/01/25 22:00 Sucralfate 1 gm QIDACHS PO 03/01/25 12:15 03/01/25 12:20 1 GM Atorvastatin Calcium 40 mg HS PO 03/01/25 22:00 Examination General examination- tired looking HEENT- PEERLA, no acute nasal discharge Cardiovascular- S1-S2 audible, rate and rhythm regular, no murmur Respiratory- CTAB, no wheeze or rhonchi Gastrointestinal-nontender, bowel sound+. No distention Musculoskeletal-no acute joint swelling or tenderness or redness Lower extremity- no leg edema Neurological- cranial nerves intact, no acute dysarthria or dysphagia Psychiatry- denies depression or SI or HI Skin- no acute rash or purpura laboratory and microbiology Laboratory Tests 03/01/25 05:45 Test 03/01/25 05:45 Range/Units Serum Glucose 176 H 74-106 mg/dL Microbiology Date/Time Source Procedure Growth Status 02/28/25 13:47 Blood Blood Culture - Preliminary NO GROWTH AFTER 24 HOURS OF INCUBATION. Resulted 02/27/25 16:50 Voided Urine Urine Culture - Preliminary Resulted Problem List/Assessment/Plan Problem List/Assessment/Plan # suspected metabolic encephalopathy # suspected sepsis likely due to UTI # acute complicated UTI -continue IV fluid as prescribed -continue IV antibiotic ceftriaxone and metronidazole as prescribed -monitor vitals -pending blood culture, urine culture # acute chest pain -EKG no acute ST-T wave changes -ordered echo 2D -monitor vitals # type 2 diabetes mellitus with hyperglycemia -continue IV normal fluid as prescribed -continuously insulin sliding scale as prescribed -monitor blood sugar # suspected PUD/GERD -continue pantoprazole and sucralfate as prescribed # hypertensive urgency -continue metoprolol 25 mg p.o. b.i.d. -monitor blood pressure # history of fall -CTA negative for acute intracranial hemorrhage or infarction -fall precaution # suspected cholelithiasis - Liver ultrasound- Dilated gallbladder with a gallstone at the gallbladder neck and borderline gallbladder wall thickening. However there is no pericholecystic fluid and the sonographic minor sign is negative. -patient was seen by surgery, recommended conservative management, no surgical intervention at this -continue IV fluid as prescribed -continue IV antibiotic as prescribed # back pain #Compression fracture of T11 and L1 age indeterminate. -X-ray right free Compression of T11 is seen age indeterminat. x-ray thoracolumbar spine -Compression fracture of T11 and L1 age indeterminate. Continue pain medication as prescribed # acute retention of urine -on 01/29/2025 bedside bladder scan revealed 1200 of urine, -ordered Townsend's catheter insertion Goals of care, Code status full code ; discussed with >15 minutes PUD prophylaxis: Pantoprazole DVT prophylaxis: Lovenox Plan discussed with Dr. Valdes , nursing staff, Total time spent on patient evaluation, chart review, assessment and plan, discussion discussion >35 minutes Plan discussed with: Patient, Other (RN) My Orders My Orders Orders - AMANDA MORGAN Procedure Category Date Status Time Thoraco Lumbar XY 02/28/25 Resulted 15:28 Pantoprazole PHA 03/01/25 In Process (Protonix) 09:45 Transfer Orders XFER 03/01/25 Transmitted 10:02 Hydromorphone PHA 03/01/25 In Process Injection (Dilaudid 11:00 Atorvastatin (Lipitor) PHA 03/01/25 In Process 22:00 Sucralfate Tab PHA 03/01/25 In Process (Carafate Tab) 12:15 Atorvastatin (Lipitor) PHA 03/01/25 In Process 22:00 Visit Coding STANDARD RES Billing Provider: PINKY ENRIQUEZ MD Date of Service if different f: Mar 01, 2025 Common Visit Codes: [id number] INP/OBS CARE(HIGH) AMANDA MORGAN Mar 01, 2025 15:12
--- NOTE | 2025-03-01 17:26 | DVHSR ---
APPROVED REPORT EXAM: Two-dimensional and M-mode echocardiogram with Doppler and color Doppler. Blood Pressure: 135/64 mmHg INDICATION Chest Pain RISK FACTORS Height: 5' 1", Weight: 116 DIMENSIONS LVDd 2.9 (3.8-5.7cm) LA (2D) 3.7 (1.9-4.0cm) Aortic Root 2.9 (2.0-3.7cm) LVDs 1.6 (2.5-4.0cm) LA (MM) (1.9-4.0cm) Aortic Cusp Exc 1.9 (1.5-2.0cm) EF (%) 77.0 (55-70%) Rt. Atrium 3.5 (1.9-4.0cm) Asc. Aorta cm IVSd 1.4 (0.7-1.1cm) RV (D) (1.8-2.4cm) PWd 1.4 (0.7-1.1cm) Mitral Valve Mitral Mitral Stenosis E wave 0.90m/s MV Mean GR. mmHg A wave 1.10m/s MV Peak GR. mmHg E/A ratio 0.8 2D MVA cm2 Aortic Valve Aortic Valve Aortic Stenosis V1 2.80m/s AO Mean GR. 7mmHg V2 2.00m/s AO Peak GR. 16mmHg LVOT Diameter 2.2 (1.8-2.4cm) Doppler DELMI 5.32cm2 Pulmonic Valve V2 0.90m/s Conclusion 1- Hyperdynamic left ventricular systolic function with estimated ejection fraction >70%. Normal LV wall motion. 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 May consider a cardiac MRI for further evaluation if clinically correlated 2-Mild mitral and tricuspid regurgitation
[2025-03-01] MEDS: INSULIN LANTUS (GLARGINE) 1 /0.01ml (100units/ml) SC SCH (18:28)
[2025-03-01] MEDS: D5W/SOD CHLO 0.9% 1,000 ML IV SCH (18:28)
[2025-03-01] MEDS ORDERED: ATORVASTATIN 20 MG TAB PO SCH (22:00)
[2025-03-01] MEDS: ATORVASTATIN 20 MG TAB PO SCH (22:41)
[2025-03-02] VITALS (7 sets, daily range): BP systolic 97–121; BP diastolic 47–63; PULSE 64–86; RESP 16–18; TEMP 95.8–98.6; O2SAT 92–97
[2025-03-02 07:06] LABS: Hematocrit 33.1 % (36.0-46.0); Hemoglobin 11.3 g/dL (12.2-16.2); Mean Corpuscular Hemoglobin 29.1 pg (28.0-32.0); Mean Corpuscular Volume 85.3 fL (80.0-100.0); Nucleated Red Blood Cells % 0.0 %
[2025-03-02] MEDS ORDERED: DEXTROSE (50%) 50ML SYRG IV PRN (08:30)
[2025-03-02 08:49] LABS: Alanine Aminotransferase 12 U/L (7-40); Alkaline Phosphatase 68 U/L (46-116); Anion Gap 11 (5-15); BUN/Creatinine Ratio 22.7 (10.0-20.0); Blood Urea Nitrogen 15 mg/dL (9-23); Carbon Dioxide 26 mmol/L (20-31); Chloride 103 mmol/L (98-107); Magnesium 2.0 mg/dL (1.6-2.6); Sodium 140 mmol/L (136-145)
[2025-03-02 08:50] LABS: Albumin 3.0 g/dL (3.2-4.8); Calcium 8.1 mg/dL (8.7-10.4); Glucose 67 mg/dL (74-106); Potassium 2.7 mmol/L (3.5-5.1); Total Protein 5.6 g/dL (5.7-8.2)
[2025-03-02 08:51] LABS: Bilirubin, Total 0.3 mg/dL (0.2-1.0)
[2025-03-02] MEDS ORDERED: CEPH250C PO ×3 (10:02→12:17)
[2025-03-02] MEDS ORDERED: ATOR40TA52 PO (10:02)
[2025-03-02] MEDS ORDERED: SUCR1TAB31 PO ×2 (10:02→10:21)
[2025-03-02] MEDS ORDERED: METF-370 PO ×2 (10:02→10:21)
[2025-03-02] MEDS ORDERED: PANT40T PO ×2 (10:02→10:21)
[2025-03-02] MEDS ORDERED: IBUP-1453 PO ×2 (10:02→10:21)
[2025-03-02] MEDS ORDERED: INSLISPI SC ×2 (10:08→10:21)
[2025-03-02] MEDS: ACCU-CHEK COMFORT CURVE STRIP VI SCH (11:55)
[2025-03-02] MEDS: InsuLIN REG 1unit/0.01ml Soln (100units/ml) SC SCH (12:10)
[2025-03-02] MEDS ORDERED: POTASSIUM CHL 20 Meq TABLET PO ONE (12:30)
[2025-03-02] MEDS ORDERED: POTASSIUM CHL 20MEQ/100ML 100 ML IV SCH (12:30)
[2025-03-02] MEDS ORDERED: POTASSIUM EFFERVESENT TAB 25 MEQ PO ONE (13:30)
[2025-03-02] MEDS: POTASSIUM CHL 20MEQ/100ML 100 ML IV SCH (13:30)
[2025-03-02] MEDS: POTASSIUM CHL 20 Meq TABLET PO ONE (14:57)
--- NOTE | 2025-03-02 15:22 | DVHPNRES ---
Progress Note Date Seen: Mar 02, 2025 Resident Creating Document: AMANDA MORGAN RESIDENT Medical Necessity Reason Pt with a Central, PICC or Fol: No Subjective Review of Systems Patient is 64 years old female with a history of type 2 diabetes mellitus on insulin noncompliant came with a complaint of generalized weakness and also high blood sugar level. As per patient she has been having dizziness and weakness for a while and she had a fall at home couple of days before, hit her head and lower back and left lower chest. Patient also endorsed had nonbloody vomiting and nonbloody diarrhea 2 days. Initial lab workup revealed hyperglycemia with a blood sugar 544, hemoglobin A1c 12.7, serum osmolality 304, serum bilirubin 1.2, trop I with a normal limit, lipase 61, urinalysis revealed leukocyte esterase 2+, WBC 8, bacteria few. Glucose 4+. Ketone 2+. Blood trace. CT abdomen and pelvis revealed- Hydropic/ distended gallbladder with gallstone near the gallbladder neck. Recommend abdominal ultrasound , HIDA scan to further evaluate for gallbladder obstruction, cholecystitis. Bilateral pulmonary nodules up to 7 mm. Recommend follow-up per Fleischner society criteria. Correlate with malignancy risk factors.Atherosclerotic, coronary artery calcification disease. Distended bladder. CT head- Scattered hypoattenuation in the periventricular and subcortical white matter, suggestive of chronic microvascular disease. Liver ultrasound- Dilated gallbladder with a gallstone at the gallbladder neck and borderline gallbladder wall thickening. However there is no pericholecystic fluid and the sonographic minor sign is negative. These findings are equivocal for acute cholecystitis. Recommend further evaluation with HIDA scan. No biliary ductal dilation.X-ray right free Compression of T11 is seen age indeterminat. X-ray coccyx- Bony structures appear normal on the tact. There are no prior studies for comparison. x-ray thoracolumbar spine -Compression fracture of T11 and L1 age indeterminate PMH-type 2 diabetes mellitus PSH- hysterectomy, appendectomy Allergy- and kidney Personal History/ Social History- denies smoking/alcoholism/drug abuse, lives with daughter ROS Cardiovascular- deny acute chest pain or shortness of breath or cough or palpitation Respiratory denies cough or short of breath or wheezing Gastrointestinal- denies any rectal bleeding, nausea or vomiting Musculoskeletal-denies acute joint swelling or tenderness or redness Neurological- denies acute dysarthria, dysphagia, change in vision Psychiatry- denies depression or SI or HI Skin- denies acute rash or purpura Patient was seen today at bedside Labs and chart reviewed Serum potassium 2.7, ordered supplement for potassium Ordered social service consult for home health for physical therapy and front wheel walker Discontinue Townsend's catheter check on patient if she can P on her own, if not we will check put vital residual volume by bedside bladder scan If patient is retaining urine after voiding plan is to reinsert Townsend's catheter and sent home with a Townsend's catheter, patient can follow up outpatient with Urology for further evaluation and care Echo 2D revealed LVEF 70% -Decreased insulin Lantus from 12 to 10 units per day On discharge plan is to put patient on metformin, Jardiance, Lantus and insulin sliding scale PRN for diabetes mellitus type 2 Spoke to patient's daughter and son at bedside Objective vital signs Vital Sign Date Time Temp Pulse Resp B/P (MAP) Pulse Ox O2 Delivery O2 Flow Rate FiO2 03/02/25 13:00 97.7 80 16 97/49 (65) 93 97.7 03/01/25 20:00 Nasal Cannula* 3 32 Total Intake and Output 03/01/25 03/01/25 03/02/25 15:00 23:00 07:00 Intake Total 100 ml 575 ml 240 ml Output Total 325 ml 300 ml Balance 100 ml 250 ml -60 ml medications Current Medications Medications Dose Ordered Sig/Yareli Route Start Time Stop Time Status Last Admin Dose Admin Ceftriaxone Sodium 50 ml @ 100 mls/hr DAILY@09 IV 02/28/25 09:00 03/02/25 08:55 100 MLS/HR Ondansetron HCl 4 mg Q4HP PRN IV 02/27/25 19:30 03/01/25 12:47 4 MG Acetaminophen 650 mg Q6HP PRN PO 02/27/25 19:30 02/28/25 08:35 650 MG Metoprolol Tartrate 25 mg BID PO 02/28/25 10:00 Hold 02/28/25 09:57 25 MG Acetaminophen/ Hydrocodone Bitart 1 tab Q6HPRN PRN PO 02/28/25 10:15 03/02/25 14:00 1 TAB Metronidazole 100 ml @ 100 mls/hr Q8H IV 02/28/25 20:30 03/02/25 11:52 100 MLS/HR Pantoprazole Sodium 40 mg DAILY IV 03/01/25 09:45 03/02/25 08:55 40 MG Hydromorphone HCl 0.25 mg Q4HPRN PRN IV 03/01/25 11:00 03/01/25 12:48 0.25 MG Sucralfate 1 gm QIDACHS PO 03/01/25 12:15 03/02/25 11:51 1 GM Atorvastatin Calcium 40 mg HS PO 03/01/25 22:00 03/01/25 22:41 40 MG Dextrose/Sodium Chloride 1,000 ml @ 100 mls/hr Q10H IV 03/01/25 17:45 03/02/25 04:12 100 MLS/HR Diagnostic Test (Pha) 1 strip ACHS 03/02/25 11:30 03/02/25 11:55 1 STRIP Insulin Human Regular ACHS SC 03/02/25 11:30 03/02/25 12:10 4 UNITS Dextrose 50 ml UD PRN IV 03/02/25 08:30 Potassium Chloride 100 ml @ 50 mls/hr Q2H IV 03/02/25 13:30 03/02/25 17:29 03/02/25 13:30 50 MLS/HR Insulin Glargine 10 units QAM SC 03/03/25 07:00 Examination General examination- tired looking HEENT- PEERLA, no acute nasal discharge Cardiovascular- S1-S2 audible, rate and rhythm regular, no murmur Respiratory- CTAB, no wheeze or rhonchi Gastrointestinal-nontender, bowel sound+. No distention Musculoskeletal-no acute joint swelling or tenderness or redness Lower extremity- no leg edema Neurological- cranial nerves intact, no acute dysarthria or dysphagia Psychiatry- denies depression or SI or HI Skin- no acute rash or purpura laboratory and microbiology Laboratory Tests 03/02/25 05:50 Test 03/02/25 05:50 Range/Units Serum Glucose 67 L 74-106 mg/dL Microbiology Date/Time Source Procedure Growth Status 02/28/25 13:47 Blood Blood Culture - Preliminary NO GROWTH AFTER 48 HOURS OF INCUBATION. Resulted 02/27/25 16:50 Voided Urine Urine Culture - Final Complete Problem List/Assessment/Plan Problem List/Assessment/Plan Assessment and plan # suspected metabolic encephalopathy # suspected sepsis likely due to UTI # acute complicated UTI -continue IV antibiotic ceftriaxone and metronidazole as prescribed -monitor vitals -blood culture negative -urine culture negative # acute chest pain, ruled out acute coronary # acute chest pain likely due to costochondritis/musculoskeletal -EKG no acute ST-T wave changes -acute 2D LVEF 70% -monitor vitals # type 2 diabetes mellitus with hyperglycemia -decreased insulin Lantus from 12 to 10 units per day -continuously insulin sliding scale as prescribed -monitor blood sugar # suspected PUD/GERD -continue pantoprazole and sucralfate as prescribed # hypertensive urgency -continue metoprolol 25 mg p.o. b.i.d. -monitor blood pressure # diabetic neuropathy -plan is to do well controlled of diabetes mellitus/blood sugar/hemoglobin A1c # history of fall -CTA negative for acute intracranial hemorrhage or infarction -fall precaution # suspected cholelithiasis - Liver ultrasound- Dilated gallbladder with a gallstone at the gallbladder neck and borderline gallbladder wall thickening. However there is no pericholecystic fluid and the sonographic minor sign is negative. -patient was seen by surgery, recommended conservative management, no surgical intervention at this -continue IV fluid as prescribed -continue IV antibiotic as prescribed # back pain #Compression fracture of T11 and L1 age indeterminate. -X-ray right free Compression of T11 is seen age indeterminat. x-ray thoracolumbar spine -Compression fracture of T11 and L1 age indeterminate. Continue pain medication as prescribed # acute retention of urine -on 01/29/2025 bedside bladder scan revealed 1200 of urine, -patient was advised to follow up outpatient with the urologist -to cover Townsend's catheter to check on if patient can be on her own or not, if patient is retaining urine again plan is to [place] patient with a Townsend's catheter and follow up with the urologist Goals of care, Code status full code ; discussed with >15 minutes PUD prophylaxis: Pantoprazole DVT prophylaxis: Lovenox Plan discussed with Dr. Valdes , nursing staff, Total time spent on patient evaluation, chart review, assessment and plan, discussion discussion >35 minutes Plan discussed with: Patient, Daughter, Son, Other (RN) My Orders My Orders Orders - AMANDA MORGAN RESIDENT Procedure Category Date Status Time D5w/Sod Chlo 0.9% PHA 03/01/25 In Process (D5w Ns 0.9%) 17:45 Transfer Orders XFER 03/02/25 Transmitted 07:53 Glucose Blood PHA 03/02/25 In Process (Accu-Chek Comfort 11:30 Insulin R (Human) PHA 03/02/25 In Process (Insulin R) 11:30 Dextrose 50% Syringe PHA 03/02/25 In Process 08:30 Consult Care CONS 03/02/25 Transmitted Coordinator Schedule For Dc SIRIA 03/02/25 In Process Clinic F/U 09:44 * Long Chain Quiller Tender CONS 03/02/25 Transmitted Consult Discontinue Townsend SIRIA 03/02/25 In Process Catheter 11:35 Potassium Chl PHA 03/02/25 In Process 20meq/100ml 13:30 Insulin Lantus PHA 03/03/25 In Process (Glargine) (Lantus) 07:00 Visit Coding STANDARD RES Billing Provider: PINKY ENRIQUEZ MD Date of Service if different f: Mar 02, 2025 Common Visit Codes: [id number] INP/OBS CARE(HIGH) AMANDA MORGAN RESIDENT Mar 02, 2025 15:22
[2025-03-02] MEDS ORDERED: EMPA1TAB PO (16:40)
[2025-03-02 20:02] LABS: Chloride 102 mmol/L (98-107); Potassium 3.9 mmol/L (3.5-5.1); Sodium 138 mmol/L (136-145)
[2025-03-02 20:03] LABS: Anion Gap 9 (5-15); Carbon Dioxide 27 mmol/L (20-31)
[2025-03-02 20:08] LABS: BUN/Creatinine Ratio 17.4 (10.0-20.0); Blood Urea Nitrogen 12 mg/dL (9-23); Calcium 8.3 mg/dL (8.7-10.4); Glucose 230 mg/dL (74-106)
[2025-03-03 01:00] VITALS: BP 108/63; PULSE 79; RESP 18; TEMP 98.1; O2SAT 93
[2025-03-03 05:00] VITALS: PULSE 80; RESP 18; TEMP 97.8; O2SAT 91
[2025-03-03] MEDS: INSULIN LANTUS (GLARGINE) 1 /0.01ml (100units/ml) SC SCH (06:32)
[2025-03-03 07:07] LABS: Hematocrit 31.5 % (36.0-46.0); Hemoglobin 10.7 g/dL (12.2-16.2); Mean Corpuscular Hemoglobin 29.3 pg (28.0-32.0); Mean Corpuscular Volume 86.0 fL (80.0-100.0); Nucleated Red Blood Cells % 0.1 %
[2025-03-03 07:20] LABS: Anion Gap 9 (5-15); Carbon Dioxide 26 mmol/L (20-31); Chloride 105 mmol/L (98-107); Potassium 3.7 mmol/L (3.5-5.1); Sodium 140 mmol/L (136-145)
[2025-03-03 07:26] LABS: BUN/Creatinine Ratio 12.1 (10.0-20.0)
[2025-03-03 07:27] LABS: Magnesium 2.0 mg/dL (1.6-2.6)
[2025-03-03 07:30] LABS: Blood Urea Nitrogen 7 mg/dL (9-23); Calcium 7.9 mg/dL (8.7-10.4); Glucose 220 mg/dL (74-106)
[2025-03-03 08:00] VITALS: RESP 16; O2SAT 97
[2025-03-03 08:52] VITALS: BP 147/44; PULSE 79; RESP 17; TEMP 98.3; O2SAT 93
[2025-03-03 10:35] LABS: Anion Gap 6 (5-15); Carbon Dioxide 26 mmol/L (20-31); Chloride 105 mmol/L (98-107); Potassium 3.6 mmol/L (3.5-5.1); Sodium 137 mmol/L (136-145)
[2025-03-03 10:37] LABS: Calcium 7.9 mg/dL (8.7-10.4)
[2025-03-03 10:41] LABS: BUN/Creatinine Ratio 14.3 (10.0-20.0)
[2025-03-03 10:44] LABS: Blood Urea Nitrogen 8 mg/dL (9-23); Glucose 251 mg/dL (74-106)
[2025-03-03] MEDS ORDERED: HYDROcodone-ACET 5/325MG TAB PO PRN (11:00)
[2025-03-03 12:36] VITALS: BP 99/37; PULSE 78; RESP 16; TEMP 98.2; O2SAT 88
--- NOTE | 2025-03-03 12:42 | ECG ---
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
--- NOTE | 2025-03-03 12:43 | ECG ---
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
--- NOTE | 2025-03-03 12:57 | ECG ---
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
[2025-03-03] MEDS ORDERED: BACL20TA PO (13:28)
--- NOTE | 2025-03-03 13:30 | DVHDSRES ---
Discharge Summary Date of Admission Resident Creating Document: YVETTE COPELAND RESIDENT Feb 27, 2025 at 19:25 Date of Discharge: Mar 02, 2025 Admitting Diagnosis #Possible metabolic encephalopathy due to UTI #Suspected sepsis likely due to UTI #Acute complicated UTI, possible cystitis #Acute chest pain likely due to costochondritis/GERD #Chronic Uncontrolled type 2 diabetes mellitus with the hyperglycemia #Hypertensive urgency #Acute urinary retention Wounds: No wounds on admission. Labs/Diagnostic Data: Laboratory Results Test 03/03/25 11:09 03/03/25 10:03 03/03/25 06:20 03/02/25 05:50 POC Glucose 262 mg/dl (70-106) Sodium Level 137 mmol/L (136-145) Potassium Level 3.6 mmol/L (3.5-5.1) Chloride Level 105 mmol/L (98-107) Carbon Dioxide Level 26 mmol/L (20-31) Anion Gap 6 (5-15) Blood Urea Nitrogen 8 mg/dL (9-23) Creatinine 0.56 mg/dL (0.550-1.02) Glomerular Filtration Rate Calc 101 mL/min (>90) BUN/Creatinine Ratio 14.3 (10.0-20.0) Serum Glucose 251 mg/dL (74-106) Calcium Level 7.9 mg/dL (8.7-10.4) White Blood Count 5.5 10^3/uL (4.4-10.8) Red Blood Count 3.66 10^6/uL (4.0-5.20) Hemoglobin 10.7 g/dL (12.2-16.2) Hematocrit 31.5 % (36.0-46.0) Mean Corpuscular Volume 86.0 fL (80.0-100.0) Mean Corpuscular Hemoglobin 29.3 pg (28.0-32.0) Mean Corpuscular Hemoglobin Concent 34.1 g/dL (32.0-36.0) Red Cell Distribution Width 12.9 % (11.8-14.3) Platelet Count 200 10^3/uL (140-450) Mean Platelet Volume 8.8 fL (6.9-10.8) Neutrophils (%) (Auto) 55.3 % (37.0-80.0) Lymphocytes (%) (Auto) 28.7 % (10.0-50.0) Monocytes (%) (Auto) 10.6 % (0.0-12.0) Eosinophils (%) (Auto) 4.8 % (0.0-7.0) Basophils (%) (Auto) 0.6 % (0.0-2.0) Neutrophils # (Auto) 3.0 10 ^3/uL (1.6-8.6) Lymphocytes # (Auto) 1.6 10 ^3/uL (0.4-5.4) Monocytes # (Auto) 0.6 10 ^3/uL (0-1.3) Eosinophils # (Auto) 0.3 10 ^3/uL (0-0.8) Basophils # (Auto) 0 10 ^3/uL (0-0.2) Nucleated Red Blood Cells 0.1 % Magnesium Level 2.0 mg/dL (1.6-2.6) Total Bilirubin 0.3 mg/dL (0.2-1.0) Aspartate Amino Transferase (AST) 12 U/L (13-40) Alanine Aminotransferase (ALT) 12 U/L (7-40) Alkaline Phosphatase 68 U/L (46-116) Total Protein 5.6 g/dL (5.7-8.2) Albumin 3.0 g/dL (3.2-4.8) Test 02/28/25 14:45 02/28/25 11:37 02/28/25 07:42 02/27/25 19:21 Troponin I High Sensitivity 6 ng/L (</=34) Serum Osmolality 304 mOsm/kg (278-298) Free Thyroxine (T4) Calculated 1.25 ng/dL (0.89-1.76) Free Triiodothyronine (T3) pg/mL 2.23 pg/mL (2.3-4.2) Total Triiodothyronine (TT3) 0.65 ng/mL (0.60-1.81) Phosphorus Level 2.1 mg/dL (2.4-5.1) Vitamin B12 Level 844 pg/mL (211-911) Vitamin D 25-Hydroxy 16.4 ng/mL (30.0-100) Folic Acid 14.81 ng/mL (>5.38) Beta-Hydroxybutyric Acid 0.393 mmol/L (< 0.4) Thyroid Stimulating Hormone (TSH) 0.32 uIU/mL (0.55-4.78) Plasma/Serum Blood Alcohol < 3.0 mg/dL (<10) Lactic Acid Level 1.2 mmol/L (0.4-2.0) Test 02/27/25 16:50 02/27/25 15:16 Urine Color Colorless (Yellow) Urine Clarity Clear (Clear) Urine pH 5.0 (5.0-9.0) Urine Specific [place] 1.027 (1.001-1.035) Urine Protein Trace (Negative) Urine Ketones 2+ (Negative) Urine Blood Trace /uL (Negative) Urine Nitrite Negative (Negative) Urine Bilirubin Negative (Negative) Urine Urobilinogen Normal mg/dL (Negative) Urine Leukocyte Esterase 2+ /uL (Negative) Urine RBC 1 /hpf (0 - 4) Urine Microscopic WBC 8 /HPF (0-5) Urine Squamous Epithelial Cells Few /hpf (<5) Urine Bacteria Few /hpf (None Seen) Urine Glucose 4+ mg/dL (Normal) Hemoglobin A1c 12.7 % A1C (<5.7) Lipase 61 U/L (12-53) Other Laboratory Tests 03/03/25 10:03 03/03/25 06:20 Brief Hx & Hospital Course: Dana Ray is a 64 years old female with a history of type 2 diabetes mellitus on insulin noncompliant came with a complaint of generalized weakness and also high blood sugar level. As per patient she has been having dizziness and weakness for a while and she had a fall at home couple of days before, hit her head and lower back and left lower chest. Patient also endorsed had nonbloody vomiting and nonbloody diarrhea 2 days. Initial lab workup revealed hyperglycemia with a blood sugar 544, hemoglobin A1c 12.7, serum osmolality 304, serum bilirubin 1.2, trop I with a normal limit, lipase 61, urinalysis revealed leukocyte esterase 2+, WBC 8, bacteria few. Glucose 4+. Ketone 2+. Blood trace. CT abdomen and pelvis revealed- Hydropic/ distended gallbladder with gallstone near the gallbladder neck. Recommend abdominal ultrasound , HIDA scan to further evaluate for gallbladder obstruction, cholecystitis. Bilateral pulmonary nodules up to 7 mm. Recommend follow-up per Fleischner society criteria. Correlate with malignancy risk factors.Atherosclerotic, coronary artery calcification disease. Distended bladder. CT head- Scattered hypoattenuation in the periventricular and subcortical white matter, suggestive of chronic microvascular disease. Liver ultrasound- Dilated gallbladder with a gallstone at the gallbladder neck and borderline gallbladder wall thickening. However there is no pericholecystic fluid and the sonographic balbuena sign is negative. These findings are equivocal for acute cholecystitis. Recommend further evaluation with HIDA scan. No biliary ductal dilation.X-ray right free Compression of T11 is seen age indeterminat. X-ray coccyx- Bony structures appear normal on the tact. There are no prior studies for comparison. x-ray thoracolumbar spine -Compression fracture of T11 and L1 age indeterminate PMH-type 2 diabetes mellitus PSH- hysterectomy, appendectomy Allergy- and kidney Personal History/ Social History- denies smoking/alcoholism/drug abuse, lives with daughter Hospital course: During her admission in the hospital, patient was assessed and evaluated every day. Patient was started on IV antibiotics due to UTI. The patient's cultures were negative at 72 hours. Urine culture showed more than 3 colonic growth. Patient received IV fluids. The patient complained of epigastric pain radiating to the chest, pressure-like, EKG no acute changes, possible GERD, symptomatic treatment was given Liver ultrasound- Dilated gallbladder with a gallstone at the gallbladder neck and borderline gallbladder wall thickening. Surgery consult was placed. The Surgery team evaluated the patient and reported cholelithiasis but no cholecystitis, and advised conservative management, no surgical intervention at this moment. On further evaluations, due to recent fall head trauma was ruled out, but tje X-ray thoracolumbar spine -showed compression fracture of T11 and L1 age indeterminate. F/U with orthopedic as an out patient was recommended. On her 3rd day of admission, due to clinical improvement, the patient was discharged home with Nitrofurantoin 100mg po bid x 5 days. The patient was advised to f/u in d/c clinic, with PCP and with orthopedics in 1 week. The patient agrees to the D/C plan. ROS: Constitutional:No: Fever, Chills, Sweats, Malaise, Other Eyes: No: Vision change, Conjunctivae inflammation, Eyelid inflammation, Other, Redness ENT: No: Ear pain, Ear discharge, Nose pain, Nose discharge, Nose congestion, Mouth pain, Mouth swelling, Throat pain, Throat swelling, Other Respiratory: No: Dry, SOB with excertion, Hemoptysis, Pleuritic Pain, Sputum, Wheezing Cardiovascular: No: Chest Pain, Palpitations, Orthopnea, Paroxysmal Noc. Dyspnea, Edema, Lt Headedness, Other Gastrointestinal: No: Nausea, Vomiting, Abdominal Pain, Diarrhea, Constipation, Melena, Hematochezia, Other Genitourinary: No Dysuria, No Frequency, No Incontinence, No Hematuria, No Retention, No Other Musculoskeletal: No: other, neck pain, shoulder pain, arm pain, back pain, hand pain, leg pain, foot pain Skin: No: Rash, Lesions, Jaundice, Bruising, Other Neurological: No: Weakness, Numbness, Incoordination, Change in speech, Confusion, Seizures, Other Physcal exam General Appearance: Alert, Oriented X3, Cooperative, No acute distress HEENT: Atraumatic, PERRLA, EOMI, Mucous membr. moist/pink Respiratory: Normal air movement Cardiovascular: Regular rate, Normal S1, Normal S2, No murmurs, no chest pain on palpation of the chest. Abdominal: Normal bowel sounds, Soft, No tenderness, No hepatospenomegaly, No masses Extremities: No clubbing, No cyanosis, No edema, Normal pulses, No tenderness/swelling Skin: No breakdown, No significant lesion Neuro: Normal gait, Normal speech, Strength at 5/5 X4 ext, Normal tone, Sensation intact, Cranial nerves 3-12 NL, Reflexes 2+ Psych/Mental Status: Mental status NL, Mood NL Consults/Reason for consult Surgery: Cholecystitis Operations or Procedures PROCEDURE(s): ABPL - CT AB PEL WO CON-NO ORAL OR IV REASON: abd pain ORDER NUMBER(s): [id number], ACCESSION NUMBER(s): [id number] INDICATION: abd pain TECHNIQUE: CT axial images of the abdomen and pelvis are obtained without contrast. Coronal and sagittal reformats were obtained. Radiation Dose Information: CTDI volume is 5.91 mGy. Dose-length product is 319.52 mGy*cm COMPARISON: None FINDINGS: There is limited interpretation of the abdomen and pelvis without administration of intravenous contrast. Lung bases demonstrate 3 mm right middle lobe pulmonary nodule. 2 mm right middle lobe pulmonary nodule. 6 mm left upper lobe lingular segment nodule. 7 mm left upper lobe lingular segment nodule. Left lower lobe solid nodule measuring 6 mm. Coronary artery calcification disease. Adrenal glands, spleen, pancreas unremarkable in shape. Liver unremarkable shape. Hydropic/Distended gallbladder. Gallstone near the gallbladder neck. Kidneys demonstrate no hydronephrosis, nephrolithiasis. Stomach is partially distended. Small bowel loops are normal in caliber. Colonic diverticular disease. Moderate volume stool in the colon. No secondary signs for appendicitis. Abdominal aortic atherosclerotic disease. Bladder markedly distended. No free pelvic fluid. No inguinal lymphadenopathy. [id number] bilateral sacroiliac degenerative joint disease. [id number] thoracolumbar degenerative disc disease. Chronic T11 compression deformity with 40% loss height. IMPRESSION: Limited evaluation without contrast. Hydropic/ distended gallbladder with gallstone near the gallbladder neck. Recommend abdominal ultrasound , HIDA scan to further evaluate for gallbladder obstruction, cholecystitis. Bilateral pulmonary nodules up to 7 mm. Recommend follow-up per Fleischner society criteria. Correlate with malignancy risk factors. Atherosclerotic, coronary artery calcification disease. Distended bladder. Other findings as described. ATED BY: ISSAC BOOKER MD DICTATED DATE/TIME: 02/27/25 1711 PROCEDURE(s): HWOCT - HEAD WITHOUT CONTRAST REASON: fall ORDER NUMBER(s): [id number], ACCESSION NUMBER(s): [id number] EXAM: CT HEAD WITHOUT CONTRAST INDICATION: fall COMPARISON: None TECHNIQUE: CT of the head without intravenous contrast. Radiation Dose Information: CT Dose: CTDI volume is 53.67 mGy. Dose-length product is 1057.69 mGy*cm The dose indicators for CT are the volume Computed Tomography (CT) Dose Index (CTDIvol) and the Dose Length Product (DLP), and are measured in units of mGy and mGy-cm, respectively. These indicators are not patient dose, but values generated from the CT scanner acquisition factors. The report includes radiation exposure data for exposures received during this examination. FINDINGS: Scattered hypoattenuation in the periventricular and subcortical white matter, suggestive of chronic microvascular disease. The ventricles and sulci are mildly enlarged, compatible with generalized parenchymal volume loss. There is no mass- effect, hemorrhage, midline shift, or abnormal extra-axial fluid collection visible. No calvarial fracture. Essentially clear visualized paranasal sinuses. Mastoid air cells are clear. IMPRESSION: No acute intracranial hemorrhage or mass effect. ATED BY: DESTINEY NAILS MD REASON: Suspected cholelithiasis/dilated CBD ORDER NUMBER(s): [id number], ACCESSION NUMBER(s): [id number] EXAM DESCRIPTION: US LIVER CLINICAL HISTORY: Suspected cholelithiasis/dilated CBD COMPARISON: CT abdomen pelvis 02/27/25. TECHNIQUE: Using real-time ultrasonography multiple images of the abdomen were obtained. FINDINGS: The liver measures 18.5 cm. No focal liver masses. The liver is diffiusely increased in echongenicity. The partially imaged pancreas is unremarkable. Dilated gallbladder with a gallstone at the gallbladder neck. Borderline gallbladder wall thickening. No pericholecystic fluid. Negative sonographic Balbuena sign. The common bile duct measures 6 mm in diameter. There is no free intraperitoneal fluid. The right kidney measures 10.4cm. No right renal calculi or hydronephrosis. IMPRESSION: 1. Dilated gallbladder with a gallstone at the gallbladder neck and borderline gallbladder wall thickening. However there is no pericholecystic fluid and the sonographic balbuena sign is negative. These findings are equivocal for acute cholecystitis. Recommend further evaluation with HIDA scan. 2. No biliary ductal dilation. EDURE(s): LRIBS - L RIB X RAY REASON: FALL/RIB PAIN ORDER NUMBER(s): [id number], ACCESSION NUMBER(s): [id number] CLINICAL INDICATION: FALL/RIB PAIN TECHNIQUE: 3 radiographic views of the compression of T11 is noted age indeterminate. were obtained. COMPARISON: None FINDINGS/IMPRESSION: There are no rib fractures noted no pleural effusions no pleural thickening. There is no pneumothorax. Compression of T11 is seen age indeterminate correlate with clinical history of trauma and clinical signs and symptoms of discomfort and pain. EDURE(s): SACCX - SACRUM AND COCCYX REASON: TAIL BONE PAIN/FALL ORDER NUMBER(s): [id number], ACCESSION NUMBER(s): [id number] CLINICAL INDICATION: TAIL BONE PAIN/FALL TECHNIQUE: 3 radiographic views of the sacrum coccyx were obtained. COMPARISON: None FINDINGS/IMPRESSION: Bony structures appear normal on the tact. There are no prior studies for comparison. ATED BY: EMMANUEL RAMOS Jr., DO PROCEDURE(s): TL - THORACO LUMBAR REASON: fall/bacl pain ORDER NUMBER(s): [id number], ACCESSION NUMBER(s): [id number] CLINICAL INDICATION: fall/bacl pain TECHNIQUE: 2 radiographic views of the lumbar spine were obtained. COMPARISON: None FINDINGS/IMPRESSION: Compression fracture of T11 and L1 age indeterminate. No compression of the lumbar spine. Bony alignment of the lumbar spine is normal. ATED BY: EMMANUEL RAMOS Jr., DO DICTATED DATE/TIME: 02/28/25 1700 Condition at Discharge: Stable Final Diagnosis/Problems List #Possible metabolic encephalopathy due to UTI #Suspected sepsis likely due to UTI #Acute complicated UTI, possible cystitis #Acute chest pain likely due to costochondritis/GERD #Chronic Uncontrolled type 2 diabetes mellitus with the hyperglycemia #Hypertensive urgency #Acute urinary retention #Compression fracture of T11 and L1 age indeterminate. #Chronic Cholelithiasis Discharge Disposition: Home SNF Discharge Will this Physician continue t: No Discharge Instruct/Medications Diet: Consistent carbohydrate, Cardiac 2g Na,low cholest Activity: No Restrictions, As Tolerated Activity comment: PT RECOMMENDED Follow Up/Referral: DC clinic PCP in 1 week Orthopedics for lumbar 1 and thoracic 11 compression fracture Medications: Macrobit 100mg po bid x 5 days Pantoprazol 40mg po daily Balcofen 10mg po tid Scheduled Cephalexin (Keflex Capsule), 500 MG PO BID Empagliflozin (Jardiance), 10 MG PO DAILY Ibuprofen (Ibuprofen), 1 TAB PO Q6HPRN Insulin Glargine (Lantus), 10 UNIT SC DAILY Metformin Hydrochloride (Metformin Hcl), 1 TAB PO BID Pantoprazole Sodium Sesquihydr (Pantoprazole Sodium), 40 MG PO DAILY Sucralfate (Carafate), 1 GM PO BID Scheduled PRN Baclofen (Baclofen), 1 TAB PO TID PRN Insulin Lispro (Human) (Humalog), 100 UNIT SC PRN PRN Discharge Statement: "Patient was advised to return to the ER or call 911 if any headaches, dizziness, shortness of breath, chest pain, abdominal pain, bleeding, fevers, or worsening of medical condition. Patient was counseled about treatment plan, medications, possible side effects, patientverbalized understanding. All questions were answered to the best of my ability. This discharge took greater then 30 minutes in planning, reviewing documentation, counseling the patient, and discussing with other team members." ASSESSMENT ASSESSMENT Assessment #Possible metabolic encephalopathy due to UTI #Suspected sepsis likely due to UTI #Acute complicated UTI, possible cystitis #Acute chest pain likely due to costochondritis/GERD #Chronic Uncontrolled type 2 diabetes mellitus with the hyperglycemia #Hypertensive urgency #Acute urinary retention #Compression fracture of T11 and L1 age indeterminate. #Chronic Cholelithiasis Patient's status and plan discussed with the patient >30min. The patient agress with the d/c plan. Case discussed with Dr. Valdes Visit Coding STANDARD RES Billing Provider: PINKY ENRIQUEZ MD Date of Service if different f: Mar 03, 2025 Common Visit Codes: 68594-UID/OBS DISCH DAY >30min YVETTE COPELAND RESIDENT Mar 03, 2025 13:30
[2025-03-03] MEDS ORDERED: INSLANTI SC (15:12)
[2025-03-03 16:32] VITALS: BP 150/82; PULSE 80; RESP 17; TEMP 98.1; O2SAT 95
[2025-03-04] MEDS ORDERED: LIDOCAINE 5% TOPICAL PATCH TOP SCH (10:00)
== END 2025-03-03 16:57 | disposition home or self-care (01) | DRG 720 ==
LOC: ER 14:48 → EDBD 14:48 → OVERFLOW 19:25 → WEST WING 23:46 → TELE-WESTW 03-01 10:17 → WEST WING 03-02 08:43
PROVIDERS: ADMIT Student in an Organized Health Care Education/Training Program; ATTEND Student in an Organized Health Care Education/Training Program
DX: A41.9 Sepsis, unspecified organism (principal); G93.41 Metabolic encephalopathy; N30.00 Acute cystitis without hematuria; I16.0 Hypertensive urgency; E11.65 Type 2 diabetes mellitus with hyperglycemia; K21.9 Gastro-esophageal reflux disease without esophagitis; M94.0 Chondrocostal junction syndrome [Tietze]; K80.20 Calculus of gallbladder without cholecystitis without obstruction; E11.40 Type 2 diabetes mellitus with diabetic neuropathy, unspecified; R33.9 Retention of urine, unspecified; M48.54XA Collapsed vertebra, not elsewhere classified, thoracic region, initial encounter for fracture; I10 Essential (primary) hypertension; Z90.710 Acquired absence of both cervix and uterus; Z79.899 Other long term (current) drug therapy
CPT/HCPCS: 36415; 70450; 71101; 72080; 72220; 74176; 76705; 80048; 80053; 80320; 81001; 82010; 82306; 82607; 82746; 82962; 83036; 83605; 83690; 83735; 83930; 84100; 84439; 84443; 84480; 84481; 84484; 85025; 87040; 87086; 93005; 93306; 96361; 96374; 97110; 97116; 97163; 97530; G0378; J1815; J1885; J2405; J2470; J3480; J3490; J7042